=== PATIENT | female | born 1960 | race Caucasian/White ===

== ENCOUNTER → 2016-10-31 | Outpatient (CLI) | payer MEDICAID ==
--- NOTE | 2016-11-05 08:57 | DEXA ---
AP SPINE L1 - L4 0.902 -2.4 -0.7 LT FEMUR TOTAL 0.685 -2.6 -1.3 RT FEMUR TOTAL 0.718 -2.3 -1.0 TOTAL BODY TOTAL OTHER DUAL FEMUR FRAX* ASSESSMENT Risk factors: Tobacco user (current smoker). 10 year probability of fracture Major osteoporotic fracture 12.9 % Hip fracture 5.3 % COMMENTS: There is low bone density of the spine. There is low bone density of the right hip. There is osteoporosis of the left hip. The decreased density of the spine does represent a significant change. The decreased density of the left hip does represent a significant change. The decreased density of the right hip does represent a significant change. The density of the spine has decreased 0.4% since the initial exam on 2009. The spine density has decreased 5.3% since the most recent exam on 05/11/2014. The density of the left hip has decreased 4.2% since the most recent exam on . The density of the right hip has decreased 4.0% since the most recent exam on . Total mean dual femur has decreased 5.1% since the initial exam on 02/08/2010. Total mean has decreased 4.0% since the previous exam on 05/11/2014. FOLLOW-UP: Recommendation for the next bone density exam: 2 years. SANDIPD
== END ==
LOC: M WHC 12:52
PROVIDERS: ATTEND Physician Assistant Medical
DX: Z13.820 Encounter for screening for osteoporosis (principal); M85.9 Disorder of bone density and structure, unspecified; M81.0 Age-related osteoporosis without current pathological fracture; F17.200 Nicotine dependence, unspecified, uncomplicated

== ENCOUNTER → 2017-06-17 | Outpatient (CLI) | payer OTHER ==
--- NOTE | 2017-06-18 09:26 | REP ---
LOW LUNG DOSE SCREENING CT: CLINICAL: Lung screening, history of tobacco use. COMPARISON: None. TECHNIQUE: Axial low dose noncontrast images from the thoracic inlet to the upper abdomen using lung screening technique. FINDINGS: The lung castillo are relatively well aerated and minimal age related chronic appearing changes are suggested. There is a small, 4 mm noncalcified opacity in the periphery of the right upper lobe (images 18-19). Minimal lingular and basilar scarring is appreciated. No further consolidation, nodule or mass lesion. No pleural effusion. No pneumothorax. No obvious adenopathy. Thoracic aorta and coronary arteries demonstrate mild atherosclerotic changes without aortic aneurysm or cardiomegaly. Surrounding musculoskeletal structures are intact. IMPRESSION: 4 mm nodular density in the right upper lobe. Lung-RADS category 2 lesion with management recommendation of 12 month followup examination. Signed by Sandeep Newman MD 06/20/2017 08:47 A
== END ==
LOC: M RAD 10:31
PROVIDERS: ATTEND Physician Assistant Medical
DX: Z72.0 Tobacco use (principal)

== ENCOUNTER → 2018-01-06 | Outpatient (REF) | payer OTHER ==
[2018-01-06 16:16] LABS: BASO # 0.2 10^3/uL (0.0-0.2); BASO % 0.6 % (0.0-1.0); EOS # 2.7 10^3/uL (0.0-0.50); EOS % 10.7 % (0.0-3.0); HEMATOCRIT 43.2 % (36.0-47.0); HEMOGLOBIN 14.3 g/dl (12.0-15.5); IMMATURE GRANULOCYTE % 0.6 % (0-3.0); LYMPH # 3.2 10^3/uL (1.5-4.5); LYMPH % 12.7 % (24.0-44.0); MEAN CORPUSCULAR HEMOGLOBIN 29.1 pg (27.0-33.0); MEAN CORPUSCULAR HGB CONC 33.1 g/dl (32.0-36.5); MEAN CORPUSCULAR VOLUME 87.8 fl (80.0-96.0); MONO # 1.1 10^3/uL (0.0-0.8); MONO % 4.3 % (0.0-5.0); NEUTROPHILS # 17.7 10^3/uL (1.8-7.7); NEUTROPHILS % 71.1 % (36.0-66.0); PLATELET COUNT, AUTOMATED 406 10^3/uL (150-450); RED BLOOD COUNT 4.92 10^6/uL (4.00-5.40); RED CELL DISTRIBUTION WIDTH 14.5 % (11.5-14.5); WHITE BLOOD COUNT 24.9 10^3/uL (4.0-10.0)
[2018-01-06 16:22] LABS: APPEARANCE, URINE HAZY (CLEAR); BACTERIA, URINE AUTO 1+ (NEGATIVE); BILIRUBIN, URINE AUTO NEGATIVE (NEGATIVE); BLOOD, URINE BLOOD NEGATIVE (NEGATIVE); COLOR, URINE YELLOW (YELLOW); GLUCOSE, URINE (UA) AUTO NEGATIVE (NEGATIVE); KETONE, URINE AUTO TRACE mg/dL (NEGATIVE); LEUKOCYTE ESTERASE, URINE AUTO 3+ (NEGATIVE); MUCUS, URINE SMALL (NEGATIVE); NITRITE, URINE AUTO NEGATIVE (NEGATIVE); PROTEIN, URINE AUTO 1+ mg/dL (NEGATIVE); RBC, URINE AUTO 5 /HPF (0-3); SPECIFIC GRAVITY URINE AUTO 1.014 (1.002-1.035); SQUAMOUS EPITHELIAL CELL UR AU 1 /HPF (0-6); UROBILINOGEN, URINE AUTO 0.2 mg/dL (0.0-2.0); WBC, URINE AUTO 111 /HPF (0-3)
[2018-01-06 16:22] LABS: LACTIC ACID SEPSIS PROTOCOL 1.4 MMOL/L (0.4-2.0)
[2018-01-06 16:38] LABS: ALBUMIN 3.8 GM/DL (3.2-5.2); ALBUMIN/GLOBULIN RATIO 0.95 (1.00-1.93); ALKALINE PHOSPHATASE 114 U/L (45-117); ALT/SGPT 23 U/L (12-78); ANION GAP 11 MEQ/L (8-16); AST/SGOT 15 U/L (7-37); BILIRUBIN,TOTAL 0.4 MG/DL (0.2-1.0); BLOOD UREA NITROGEN 10 MG/DL (7-18); C REACTIVE PROTEIN QUANTITATIV 8.58 MG/DL (0.00-0.30); CALCIUM LEVEL 9.3 MG/DL (8.5-10.1); CARBON DIOXIDE LEVEL 24 MEQ/L (21-32); CHLORIDE LEVEL 101 MEQ/L (98-107); CREATININE FOR GFR 0.66 MG/DL (0.55-1.30); GLOMERULAR FILTRATION RATE > 60.0 (>51); GLUCOSE, FASTING 102 MG/DL (70-100); POTASSIUM SERUM 4.4 MEQ/L (3.5-5.1); SODIUM LEVEL 136 MEQ/L (136-145); TOTAL PROTEIN 7.8 GM/DL (6.4-8.2)
[2018-01-06 16:45] LABS: ERYTHROCYTE SEDIMENTATION RATE 21 mm/hr (0-30)
== END ==
LOC: M SFHCPLAZ 15:33
DX: N39.0 Urinary tract infection, site not specified (principal); N18.3 Chronic kidney disease, stage 3 (moderate)

== ENCOUNTER → 2018-01-13 | Outpatient (REF) | payer OTHER ==
[2018-01-13 13:29] LABS: ALBUMIN 3.3 GM/DL (3.2-5.2); ALKALINE PHOSPHATASE 70 U/L (45-117); ALT/SGPT 33 U/L (12-78); ANION GAP 7 MEQ/L (8-16); AST/SGOT 14 U/L (7-37); BILIRUBIN,TOTAL 0.3 MG/DL (0.2-1.0); BLOOD UREA NITROGEN 12 MG/DL (7-18); CARBON DIOXIDE LEVEL 33 MEQ/L (21-32); CHLORIDE LEVEL 102 MEQ/L (98-107); CREATININE FOR GFR 0.64 MG/DL (0.55-1.30); GLOMERULAR FILTRATION RATE > 60.0 (>51); GLUCOSE, FASTING 71 MG/DL (70-100); SODIUM LEVEL 142 MEQ/L (136-145); TOTAL PROTEIN 6.6 GM/DL (6.4-8.2)
[2018-01-13 13:32] LABS: BASO # 0.1 10^3/uL (0.0-0.2); BASO % 0.2 % (0.0-1.0); EOS # 0.4 10^3/uL (0.0-0.50); EOS % 1.7 % (0.0-3.0); HEMATOCRIT 41.4 % (36.0-47.0); HEMOGLOBIN 13.4 g/dl (12.0-15.5); IMMATURE GRANULOCYTE % 2.3 % (0-3.0); LYMPH # 2.7 10^3/uL (1.5-4.5); MEAN CORPUSCULAR HEMOGLOBIN 29.7 pg (27.0-33.0); MEAN CORPUSCULAR HGB CONC 32.4 g/dl (32.0-36.5); MEAN CORPUSCULAR VOLUME 91.8 fl (80.0-96.0); MONO # 1.1 10^3/uL (0.0-0.8); MONO % 4.2 % (0.0-5.0); NEUTROPHILS % 80.6 % (36.0-66.0); PLATELET COUNT, AUTOMATED 358 10^3/uL (150-450); PTH INTACT 85.5 PG/ML (18.5-88.0); RED BLOOD COUNT 4.51 10^6/uL (4.00-5.40); RED CELL DISTRIBUTION WIDTH 15.9 % (11.5-14.5); TOTAL 25(OH) VITAMIN D 60.6 NG/ML (30.0-100.0); WHITE BLOOD COUNT 24.8 10^3/uL (4.0-10.0)
== END ==
LOC: M SFHCPLAZ 11:08
DX: A41.9 Sepsis, unspecified organism (principal); M89.9 Disorder of bone, unspecified
CPT/HCPCS: 80053

== ENCOUNTER → 2018-01-20 | Outpatient (REF) | payer OTHER ==
[2018-01-20 17:54] LABS: APPEARANCE, URINE CLOUDY (CLEAR); BACTERIA, URINE AUTO 2+ (NEGATIVE); BILIRUBIN, URINE AUTO NEGATIVE (NEGATIVE); BLOOD, URINE BLOOD 1+ (NEGATIVE); COLOR, URINE YELLOW (YELLOW); GLUCOSE, URINE (UA) AUTO NEGATIVE (NEGATIVE); KETONE, URINE AUTO NEGATIVE (NEGATIVE); LEUKOCYTE ESTERASE, URINE AUTO 3+ (NEGATIVE); MUCUS, URINE SMALL (NEGATIVE); NITRITE, URINE AUTO NEGATIVE (NEGATIVE); PROTEIN, URINE AUTO NEGATIVE (NEGATIVE); RBC, URINE AUTO 6 /HPF (0-3); SPECIFIC GRAVITY URINE AUTO 1.012 (1.002-1.035); SQUAMOUS EPITHELIAL CELL UR AU 5 /HPF (0-6); WBC, URINE AUTO 18 /HPF (0-3)
== END ==
LOC: M SFHCPLAZ 15:58
DX: R30.0 Dysuria (principal); R33.9 Retention of urine, unspecified
CPT/HCPCS: 81001

== ENCOUNTER → 2018-01-22 | Outpatient (CLI) | payer OTHER | LOC: M CARPUL 07:33 | DX: R50.9 Fever, unspecified (principal) | CPT/HCPCS: 93306 ==

== ENCOUNTER → 2018-02-19 | Outpatient (CLI) | payer OTHER | LOC: M ONCR 14:03 | DX: C52 Malignant neoplasm of vagina (principal) | CPT/HCPCS: 99201 ==

== ENCOUNTER → 2018-02-24 | Outpatient (CLI) | payer OTHER | LOC: M PLARAD 11:18 | DX: C52 Malignant neoplasm of vagina (principal); Z93.6 Other artificial openings of urinary tract status | CPT/HCPCS: 78815 ==

== ENCOUNTER 2018-02-25 10:32 | Outpatient (RCR) | payer OTHER | END 2018-03-13 | LOC: M ONCR 10:32 | DX: C52 Malignant neoplasm of vagina (principal) | CPT/HCPCS: 77300 ==

== ENCOUNTER → 2018-02-26 | Outpatient (REF) | payer OTHER ==
[2018-02-26 19:21] LABS: APPEARANCE, URINE CLEAR (CLEAR); BACTERIA, URINE AUTO 1+ (NEGATIVE); BILIRUBIN, URINE AUTO NEGATIVE (NEGATIVE); BLOOD, URINE BLOOD NEGATIVE (NEGATIVE); CALCIUM OXALATE CRYSTALS SMALL; COLOR, URINE YELLOW (YELLOW); GLUCOSE, URINE (UA) AUTO NEGATIVE (NEGATIVE); KETONE, URINE AUTO NEGATIVE (NEGATIVE); LEUKOCYTE ESTERASE, URINE AUTO 2+ (NEGATIVE); MUCUS, URINE SMALL (NEGATIVE); NITRITE, URINE AUTO NEGATIVE (NEGATIVE); PROTEIN, URINE AUTO 1+ mg/dL (NEGATIVE); RBC, URINE AUTO 3 /HPF (0-3); SPECIFIC GRAVITY URINE AUTO 1.017 (1.002-1.035); SQUAMOUS EPITHELIAL CELL UR AU 2 /HPF (0-6); WBC, URINE AUTO 6 /HPF (0-3)
== END ==
LOC: M SMT 17:15
DX: R31.9 Hematuria, unspecified (principal)
CPT/HCPCS: 81001

== ENCOUNTER → 2018-03-02 | Outpatient (CLI) | payer OTHER ==
[~2018-03-02] MED LIST: BACTRIM 160MG/800MG DS TAB As Ordered; ISOVUE-300 61% 50ML VIAL (Q9967) As Ordered; LIDOCAINE 1% MDV 20ML VIAL As Ordered
== END ==
LOC: M RADPRO 11:47
DX: N13.30 Unspecified hydronephrosis (principal); C52 Malignant neoplasm of vagina; Z79.899 Other long term (current) drug therapy
CPT/HCPCS: 50435

== ENCOUNTER 2018-03-03 13:18 | Outpatient (CLI) | payer OTHER ==
[2018-03-03] MEDS ORDERED: LIDOCAINE 2% MDV 20 ML VIAL As Ordered (13:43)
[2018-03-03] MEDS ORDERED: ISOVUE-300 61% 50ML VIAL (Q9967) As Ordered (13:43)
[2018-03-03] MEDS ORDERED: cefTRIAXone SOD 1 GM VIAL (J0696) As Ordered (14:17)
[2018-03-03] MEDS ORDERED: ONDANSETRON 4MG/2ML VIAL (J2405) IV (15:45)
[2018-03-03] MEDS ORDERED: LR 1,000 ML IV (15:45)
[2018-03-03] MEDS ORDERED: fentaNYL 100 MCG/2 ML INJECTION (J3010) IV (15:45)
[2018-03-03] MEDS ORDERED: oxyCODONE 5MG TAB As Ordered (15:47)
[2018-03-03] MEDS: oxyCODONE 5MG TAB PO (15:50)
== END 2018-03-03 16:21 | disposition home or self-care (01) ==
LOC: M RADPRO 13:18
DX: N13.5 Crossing vessel and stricture of ureter without hydronephrosis (principal); C52 Malignant neoplasm of vagina; D64.9 Anemia, unspecified; M19.90 Unspecified osteoarthritis, unspecified site; M54.89 Other dorsalgia; N18.3 Chronic kidney disease, stage 3 (moderate)
CPT/HCPCS: 50435

== ENCOUNTER 2018-03-04 12:44 | Inpatient (IN) | payer OTHER ==
[2018-03-04] MEDS: NS 500 ML IV (13:41)
[2018-03-04 14:00] LABS: ALBUMIN 2.7 GM/DL (3.2-5.2); ALKALINE PHOSPHATASE 170 U/L (45-117); ALT/SGPT 31 U/L (12-78); ANION GAP 11 MEQ/L (8-16); AST/SGOT 21 U/L (7-37); BILIRUBIN,DIRECT 0.2 MG/DL (0.0-0.2); BILIRUBIN,TOTAL 0.3 MG/DL (0.2-1.0); BLOOD UREA NITROGEN 10 MG/DL (7-18); CALCIUM LEVEL 14.2 MG/DL (8.5-10.1); CARBON DIOXIDE LEVEL 28 MEQ/L (21-32); CHLORIDE LEVEL 98 MEQ/L (98-107); CPK CREATINE PHOSPHOKINASE 58 U/L (26-192); CREATININE FOR GFR 0.67 MG/DL (0.55-1.30); GLOMERULAR FILTRATION RATE > 60.0 (>51); GLUCOSE, FASTING 95 MG/DL (70-100); POTASSIUM SERUM 3.4 MEQ/L (3.5-5.1); SODIUM LEVEL 137 MEQ/L (136-145); TOTAL PROTEIN 7.2 GM/DL (6.4-8.2); TROPONIN I < 0.02 NG/ML (< 0.10)
[2018-03-04 14:05] LABS: CK-MB VALUE MASS 1.9 NG/ML (<3.6); MB/CK RELATIVE INDEX 3.27 (< OR =4); THYROID STIMULATING HORMONE 0.772 uIU/ML (0.358-3.740)
[2018-03-04 14:08] LABS: INR 0.97
[2018-03-04 14:10] LABS: LACTIC ACID SEPSIS PROTOCOL 0.9 MMOL/L (0.4-2.0)
[2018-03-04 14:16] LABS: BASO # 0.1 10^3/uL (0.0-0.2); BASO % 0.3 % (0.0-1.0); EOS # 0.7 10^3/uL (0.0-0.50); EOS % 2.2 % (0.0-3.0); HEMOGLOBIN 10.8 g/dl (12.0-15.5); IMMATURE GRANULOCYTE % 1.2 % (0-3.0); LYMPH # 1.5 10^3/uL (1.5-4.5); LYMPH % 4.5 % (24.0-44.0); MEAN CORPUSCULAR HEMOGLOBIN 28.3 pg (27.0-33.0); MEAN CORPUSCULAR HGB CONC 31.8 g/dl (32.0-36.5); MEAN CORPUSCULAR VOLUME 89.2 fl (80.0-96.0); MONO # 1.2 10^3/uL (0.0-0.8); MONO % 3.7 % (0.0-5.0); NEUTROPHILS % 88.1 % (36.0-66.0); PLATELET COUNT, AUTOMATED 514 10^3/uL (150-450); RED BLOOD COUNT 3.81 10^6/uL (4.00-5.40); RED CELL DISTRIBUTION WIDTH 17.1 % (11.5-14.5)
[2018-03-04 14:37] LABS: NEUTROPHILS # 28.9 10^3/uL (1.8-7.7); POS COUNT POS FLAG; POSITIVE DIFF POS FLAG; WHITE BLOOD COUNT 32.8 10^3/uL (4.0-10.0)
[2018-03-04] MEDS: oxyCODONE 5MG TAB PO (15:07)
[2018-03-04] MEDS: NS 1,000 ML IV (15:17)
[2018-03-04] MEDS ORDERED: ONDANSETRON 4MG/2ML VIAL (J2405) IV (15:30)
[2018-03-04 15:51] LABS: PTH INTACT 9.8 PG/ML (18.5-88.0)
[2018-03-04] MEDS ORDERED: oxyCODONE 5MG TAB PO (17:00)
[2018-03-04] MEDS ORDERED: ACETAMINOPHEN 500 MG TAB PO (17:00)
[2018-03-04] MEDS ORDERED: MORPHINE 4 MG/ML 1ML VIAL/SYRINGE (J2270) IV (17:30)
[2018-03-04] MEDS: POTASSIUM CHLORIDE 10 MEQ SR TABLET PO ×2 (17:51→20:07)
[2018-03-04] MEDS: PIPERACILLIN/TAZOBACTAM SOD 3.375 GM in D5W MINI-BAG PLUS 50 ML IV ×2 (17:51→23:51)
[2018-03-04] MEDS: MORPHINE 4 MG/ML 1ML VIAL/SYRINGE (J2270) IV ×2 (17:52→20:07)
[2018-03-04 18:23] LABS: LACTIC ACID SEPSIS PROTOCOL 0.9 MMOL/L (0.4-2.0)
[2018-03-04 18:24] LABS: ANION GAP 7 MEQ/L (8-16); BLOOD UREA NITROGEN 8 MG/DL (7-18); CALCIUM LEVEL 12.7 MG/DL (8.5-10.1); CARBON DIOXIDE LEVEL 28 MEQ/L (21-32); CHLORIDE LEVEL 102 MEQ/L (98-107); CPK CREATINE PHOSPHOKINASE 49 U/L (26-192); CREATININE FOR GFR 0.58 MG/DL (0.55-1.30); GLOMERULAR FILTRATION RATE > 60.0 (>51); GLUCOSE, FASTING 100 MG/DL (70-100); POTASSIUM SERUM 3.2 MEQ/L (3.5-5.1); SODIUM LEVEL 137 MEQ/L (136-145); TROPONIN I < 0.02 NG/ML (< 0.10)
[2018-03-04 18:25] LABS: CK-MB VALUE MASS 2.2 NG/ML (<3.6); MB/CK RELATIVE INDEX 4.48 (< OR =4)
[2018-03-04] MEDS ORDERED: guaiFENesin DM LIQ 10ML UD PO (19:00)
[2018-03-04] MEDS: DOCUSATE SODIUM 100 MG CAP PO (20:07)
[2018-03-04] MEDS: IPRATROPIUM 0.5MG/ALBUTEROL 2.5MG INH SOL UD 3ML (DUONEB)(J7620) NEB (20:39)
[2018-03-04] MEDS: ADVAIR HFA 230/21MCG INHALER INH (20:39)
[2018-03-04 21:52] LABS: AMORPHOUS SEDIMENT RFX MODERATE (NEGATIVE); KETONE, URINE AUTO RFX NEGATIVE (NEGATIVE); LEUKOCYTE ESTERASE UR AUTO RFX 3+ (NEGATIVE); MUCUS, URINE RFX MODERATE (NEGATIVE); NITRITE, URINE AUTO RFX NEGATIVE (NEGATIVE); RBC, URINE AUTO RFX 53 /HPF (0-3); SPECIFIC GRAVITY UR AUTO RFX 1.008 (1.002-1.035); SQUAM EPITHELIAL CELL UR AURFX 6 /HPF (0-6); WBC, URINE AUTO RFX TNTC /HPF (0-3)
[2018-03-05] MEDS: oxyCODONE 5MG TAB PO ×4 (00:06→23:58)
[2018-03-05] MEDS: IPRATROPIUM 0.5MG/ALBUTEROL 2.5MG INH SOL UD 3ML (DUONEB)(J7620) NEB ×5 (00:32→20:24)
[2018-03-05 00:42] LABS: KETONE, URINE AUTO RFX NEGATIVE (NEGATIVE); MUCUS, URINE RFX SMALL (NEGATIVE); NITRITE, URINE AUTO RFX NEGATIVE (NEGATIVE); RBC, URINE AUTO RFX 61 /HPF (0-3); SPECIFIC GRAVITY UR AUTO RFX 1.008 (1.002-1.035); SQUAM EPITHELIAL CELL UR AURFX 0 /HPF (0-6)
[2018-03-05 00:52] LABS: LEUKOCYTE ESTERASE UR AUTO RFX 3+ (NEGATIVE); WBC, URINE AUTO RFX 37 /HPF (0-3)
[2018-03-05 01:19] LABS: ANION GAP 6 MEQ/L (8-16); BLOOD UREA NITROGEN 7 MG/DL (7-18); CALCIUM LEVEL 12.2 MG/DL (8.5-10.1); CARBON DIOXIDE LEVEL 27 MEQ/L (21-32); CHLORIDE LEVEL 105 MEQ/L (98-107); CK-MB VALUE MASS 2.1 NG/ML (<3.6); CPK CREATINE PHOSPHOKINASE 36 U/L (26-192); CREATININE FOR GFR 0.59 MG/DL (0.55-1.30); GLOMERULAR FILTRATION RATE > 60.0 (>51); GLUCOSE, FASTING 120 MG/DL (70-100); MB/CK RELATIVE INDEX 5.83 (< OR =4); POTASSIUM SERUM 4.4 MEQ/L (3.5-5.1); SODIUM LEVEL 138 MEQ/L (136-145); TROPONIN I < 0.02 NG/ML (< 0.10)
[2018-03-05] MEDS: NS 1,000 ML IV ×3 (02:27→16:58)
[2018-03-05] MEDS: PIPERACILLIN/TAZOBACTAM SOD 3.375 GM in D5W MINI-BAG PLUS 50 ML IV ×4 (05:45→23:58)
[2018-03-05] MEDS: MORPHINE 4 MG/ML 1ML VIAL/SYRINGE (J2270) IV (05:49)
[2018-03-05 05:54] LABS: HEMATOCRIT 29.4 % (36.0-47.0); HEMOGLOBIN 9.2 g/dl (12.0-15.5); MEAN CORPUSCULAR HEMOGLOBIN 28.2 pg (27.0-33.0); MEAN CORPUSCULAR HGB CONC 31.3 g/dl (32.0-36.5); MEAN CORPUSCULAR VOLUME 90.2 fl (80.0-96.0); PLATELET COUNT, AUTOMATED 467 10^3/uL (150-450); RED BLOOD COUNT 3.26 10^6/uL (4.00-5.40); RED CELL DISTRIBUTION WIDTH 17.2 % (11.5-14.5)
[2018-03-05 06:05] LABS: ANION GAP 7 MEQ/L (8-16); BLOOD UREA NITROGEN 7 MG/DL (7-18); CALCIUM LEVEL 12.3 MG/DL (8.5-10.1); CARBON DIOXIDE LEVEL 26 MEQ/L (21-32); CHLORIDE LEVEL 108 MEQ/L (98-107); CREATININE FOR GFR 0.58 MG/DL (0.55-1.30); GLOMERULAR FILTRATION RATE > 60.0 (>51); GLUCOSE, FASTING 76 MG/DL (70-100); MAGNESIUM LEVEL 1.5 MG/DL (1.8-2.4); POTASSIUM SERUM 4.7 MEQ/L (3.5-5.1); SODIUM LEVEL 141 MEQ/L (136-145)
[2018-03-05 06:27] LABS: POS COUNT POS FLAG; POSITIVE DIFF POS FLAG; WHITE BLOOD COUNT 33.8 10^3/uL (4.0-10.0)
[2018-03-05 06:28] LABS: ADD MANUAL DIFFER YES; DIFF SLIDE NUMBER 78
[2018-03-05 06:29] LABS: ANISOCYTOSIS 1+; EOSINOPHILS 5 % (0-5); LYMPHOCYTES 2 % (16-52); MONOCYTES 4 % (0-8); NEUTROPHILS 89 % (35-75); PLATELET ESTIMATE INCREASED (NORMAL)
[2018-03-05] MEDS: ADVAIR HFA 230/21MCG INHALER INH ×2 (07:48→20:25)
[2018-03-05] MEDS: TIOTROPIUM INHALER/CAPSULE (SPIRIVA) INH (07:48)
[2018-03-05] MEDS: DOCUSATE SODIUM 100 MG CAP PO ×2 (08:43→20:18)
[2018-03-05] MEDS: POTASSIUM CHLORIDE 10 MEQ SR TABLET PO (08:44)
[2018-03-05] MEDS: OMEPRAZOLE 20 MG CAP PO (08:58)
[2018-03-05] MEDS ORDERED: CALCIUM/VITAMIN D 500 MG TAB PO (09:00)
[2018-03-05] MEDS ORDERED: methylPREDNISolone INJ 125 MG/2 ML VIAL (J2930) IV (10:15)
[2018-03-05] MEDS: NICOTINE 21MG/24HR 1 EA TRANSDERMAL TD (10:48)
[2018-03-05] MEDS: HYDROCORTISONE 100 MG/2 ML VIAL (J1720) IV ×2 (10:48→23:57)
[2018-03-05] MEDS: MAG SULF 1GM/100ML (MAG RUN) 1 GM in APPROPRIATE DILUENT 1 EA IV (10:51)
[2018-03-05 10:59] LABS: CK-MB VALUE MASS 1.6 NG/ML (<3.6); CPK CREATINE PHOSPHOKINASE 37 U/L (26-192); MB/CK RELATIVE INDEX 4.32 (< OR =4); TROPONIN I < 0.02 NG/ML (< 0.10)
[2018-03-05] MEDS: ENOXAPARIN 30 MG/0.3 ML SYR (J1650) SC (11:53)
[2018-03-05] MEDS: KETOROLAC 60 MG/2 ML VIAL (J1885) IM (11:56)
[2018-03-05 12:09] LABS: ANION GAP 6 MEQ/L (8-16); BLOOD UREA NITROGEN 6 MG/DL (7-18); CALCIUM LEVEL 11.8 MG/DL (8.5-10.1); CARBON DIOXIDE LEVEL 27 MEQ/L (21-32); CHLORIDE LEVEL 107 MEQ/L (98-107); CREATININE FOR GFR 0.55 MG/DL (0.55-1.30); GLOMERULAR FILTRATION RATE > 60.0 (>51); GLUCOSE, FASTING 93 MG/DL (70-100); POTASSIUM SERUM 4.6 MEQ/L (3.5-5.1); SODIUM LEVEL 140 MEQ/L (136-145)
[2018-03-05 12:36] LABS: OSMOLALITY SERUM 280 MOSM/KG (275-295)
[2018-03-05] MEDS: FUROSEMIDE 20 MG/2 ML VIAL (J1940) IV (12:50)
[2018-03-05] MEDS: ZOLEDRONIC ACID 4 MG in D5W 100 ML IV (14:59)
[2018-03-05] MEDS: CALCITONIN SALMON (MIACALCIN) 400INTERNATIONAL UNITS/2ML INJ (J0630) SQ ×2 (14:59→20:18)
[2018-03-05 17:45] LABS: OSMOLALITY URINE 265 MOSM/KG (500-800)
[2018-03-05 17:59] LABS: SODIUM,RANDOM URINE 78 MEQ/L
[2018-03-05 18:22] LABS: ANION GAP 9 MEQ/L (8-16); BLOOD UREA NITROGEN 7 MG/DL (7-18); CALCIUM LEVEL 11.1 MG/DL (8.5-10.1); CARBON DIOXIDE LEVEL 26 MEQ/L (21-32); CHLORIDE LEVEL 104 MEQ/L (98-107); CREATININE FOR GFR 0.65 MG/DL (0.55-1.30); GLOMERULAR FILTRATION RATE > 60.0 (>51); GLUCOSE, FASTING 135 MG/DL (70-100); POTASSIUM SERUM 4.2 MEQ/L (3.5-5.1); SODIUM LEVEL 139 MEQ/L (136-145)
[2018-03-06 00:23] LABS: ANION GAP 6 MEQ/L (8-16); BLOOD UREA NITROGEN 7 MG/DL (7-18); CALCIUM LEVEL 10.5 MG/DL (8.5-10.1); CARBON DIOXIDE LEVEL 28 MEQ/L (21-32); CHLORIDE LEVEL 106 MEQ/L (98-107); GLOMERULAR FILTRATION RATE > 60.0 (>51); GLUCOSE, FASTING 91 MG/DL (70-100); POTASSIUM SERUM 3.6 MEQ/L (3.5-5.1); SODIUM LEVEL 140 MEQ/L (136-145)
[2018-03-06] MEDS: IPRATROPIUM 0.5MG/ALBUTEROL 2.5MG INH SOL UD 3ML (DUONEB)(J7620) NEB ×5 (02:16→20:49)
[2018-03-06] MEDS: oxyCODONE 5MG TAB PO ×4 (03:57→16:49)
[2018-03-06] MEDS: PIPERACILLIN/TAZOBACTAM SOD 3.375 GM in D5W MINI-BAG PLUS 50 ML IV ×3 (05:40→18:07)
[2018-03-06 06:04] LABS: BASO % 0.1 % (0.0-1.0); EOS % 0.1 % (0.0-3.0); HEMOGLOBIN 8.5 g/dl (12.0-15.5); IMMATURE GRANULOCYTE % 1.1 % (0-3.0); LYMPH # 0.9 10^3/uL (1.5-4.5); LYMPH % 3.4 % (24.0-44.0); MEAN CORPUSCULAR HEMOGLOBIN 28.4 pg (27.0-33.0); MEAN CORPUSCULAR HGB CONC 31.5 g/dl (32.0-36.5); MEAN CORPUSCULAR VOLUME 90.3 fl (80.0-96.0); MONO # 0.3 10^3/uL (0.0-0.8); NEUTROPHILS % 94.3 % (36.0-66.0); PLATELET COUNT, AUTOMATED 403 10^3/uL (150-450); RED BLOOD COUNT 2.99 10^6/uL (4.00-5.40); WHITE BLOOD COUNT 27.1 10^3/uL (4.0-10.0)
[2018-03-06 06:29] LABS: ANION GAP 7 MEQ/L (8-16); BLOOD UREA NITROGEN 7 MG/DL (7-18); CARBON DIOXIDE LEVEL 26 MEQ/L (21-32); CHLORIDE LEVEL 107 MEQ/L (98-107); CREATININE FOR GFR 0.45 MG/DL (0.55-1.30); GLOMERULAR FILTRATION RATE > 60.0 (>51); GLUCOSE, FASTING 112 MG/DL (70-100); MAGNESIUM LEVEL 1.5 MG/DL (1.8-2.4); POTASSIUM SERUM 3.7 MEQ/L (3.5-5.1); SODIUM LEVEL 140 MEQ/L (136-145)
[2018-03-06 06:31] LABS: NEUTROPHILS # 25.5 10^3/uL (1.8-7.7); POSITIVE DIFF POS FLAG
[2018-03-06] MEDS: TIOTROPIUM INHALER/CAPSULE (SPIRIVA) INH (07:41)
[2018-03-06] MEDS: ADVAIR HFA 230/21MCG INHALER INH ×2 (07:41→20:49)
[2018-03-06 08:21] LABS: PHOSPHORUS LEVEL 2.5 MG/DL (2.5-4.9)
[2018-03-06] MEDS: MAG SULF 1GM/100ML (MAG RUN) 1 GM in APPROPRIATE DILUENT 1 EA IV (09:54)
[2018-03-06] MEDS: ENOXAPARIN 30 MG/0.3 ML SYR (J1650) SC (09:55)
[2018-03-06] MEDS: OMEPRAZOLE 20 MG CAP PO (09:55)
[2018-03-06] MEDS: DOCUSATE SODIUM 100 MG CAP PO ×2 (09:55→20:41)
[2018-03-06] MEDS: NICOTINE 21MG/24HR 1 EA TRANSDERMAL TD (09:55)
[2018-03-06] MEDS: HYDROCORTISONE 100 MG/2 ML VIAL (J1720) IV (11:37)
[2018-03-06 14:57] LABS: VITAMIN D 1,25 DIHYDROXY 58.2 pg/mL (19.9-79.3)
[2018-03-06] MEDS: MORPHINE 4 MG/ML 1ML VIAL/SYRINGE (J2270) IV (20:47)
[2018-03-07] MEDS: HYDROCORTISONE 100 MG/2 ML VIAL (J1720) IV ×2 (00:05→10:52)
[2018-03-07] MEDS: PIPERACILLIN/TAZOBACTAM SOD 3.375 GM in D5W MINI-BAG PLUS 50 ML IV ×3 (00:06→13:02)
[2018-03-07] MEDS: oxyCODONE 5MG TAB PO ×3 (00:14→13:09)
[2018-03-07] MEDS: IPRATROPIUM 0.5MG/ALBUTEROL 2.5MG INH SOL UD 3ML (DUONEB)(J7620) NEB ×4 (02:34→12:32)
[2018-03-07 05:35] LABS: BASO % 0.1 % (0.0-1.0); HEMOGLOBIN 8.5 g/dl (12.0-15.5); IMMATURE GRANULOCYTE % 1.4 % (0-3.0); LYMPH # 0.8 10^3/uL (1.5-4.5); MEAN CORPUSCULAR HGB CONC 31.5 g/dl (32.0-36.5); MEAN CORPUSCULAR VOLUME 88.8 fl (80.0-96.0); MONO # 0.2 10^3/uL (0.0-0.8); MONO % 0.9 % (0.0-5.0); NEUTROPHILS % 94.6 % (36.0-66.0); PLATELET COUNT, AUTOMATED 362 10^3/uL (150-450); RED BLOOD COUNT 3.04 10^6/uL (4.00-5.40); RED CELL DISTRIBUTION WIDTH 16.9 % (11.5-14.5); WHITE BLOOD COUNT 27.2 10^3/uL (4.0-10.0)
[2018-03-07 05:38] LABS: NEUTROPHILS # 25.7 10^3/uL (1.8-7.7); POSITIVE DIFF POS FLAG
[2018-03-07 06:01] LABS: ALBUMIN 2.2 GM/DL (3.2-5.2); ANION GAP 7 MEQ/L (8-16); BLOOD UREA NITROGEN 8 MG/DL (7-18); CALCIUM LEVEL 8.7 MG/DL (8.5-10.1); CARBON DIOXIDE LEVEL 27 MEQ/L (21-32); CHLORIDE LEVEL 105 MEQ/L (98-107); CREATININE FOR GFR 0.43 MG/DL (0.55-1.30); GLOMERULAR FILTRATION RATE > 60.0 (>51); GLUCOSE, FASTING 134 MG/DL (70-100); MAGNESIUM LEVEL 1.4 MG/DL (1.8-2.4); PHOSPHORUS LEVEL 2.3 MG/DL (2.5-4.9); SODIUM LEVEL 139 MEQ/L (136-145)
[2018-03-07] MEDS: ADVAIR HFA 230/21MCG INHALER INH (07:34)
[2018-03-07] MEDS: TIOTROPIUM INHALER/CAPSULE (SPIRIVA) INH (07:34)
[2018-03-07] MEDS: MAG SULF 1GM/100ML (MAG RUN) 1 GM in APPROPRIATE DILUENT 1 EA IV ×2 (08:13→14:14)
[2018-03-07] MEDS: DOCUSATE SODIUM 100 MG CAP PO (08:53)
[2018-03-07] MEDS: OMEPRAZOLE 20 MG CAP PO (08:53)
[2018-03-07] MEDS: NICOTINE 21MG/24HR 1 EA TRANSDERMAL TD (08:54)
[2018-03-07] MEDS: MIRALAX *UNIT DOSE* 17GM PACKET PO (08:54)
[2018-03-07] MEDS: ENOXAPARIN 30 MG/0.3 ML SYR (J1650) SC (08:54)
[2018-03-07] MEDS: POTASSIUM CHLORIDE 10 MEQ SR TABLET PO ×2 (10:53→14:13)
[2018-03-07] MEDS ORDERED: PENICILLIN POTASSIUM MU IV (13:15)
[2018-03-07] MEDS ORDERED: DILUENT IV (13:15)
[2018-03-07] MEDS: PREVNAR 13 VACCINE SYRINGE (CPT CODE:90670) IM (16:14)
[2018-03-07] MEDS ORDERED: AMPICILLIN SOD 500 MG in D5W 50 ML IV (18:00)
== END 2018-03-07 17:20 | disposition home or self-care (01) | DRG 425 ==
LOC: M ED 12:44 → M ED INP 15:26 → M PCU 17:01
DX: E83.52 Hypercalcemia (principal); A41.9 Sepsis, unspecified organism; N39.0 Urinary tract infection, site not specified; N18.3 Chronic kidney disease, stage 3 (moderate); C52 Malignant neoplasm of vagina; E87.1 Hypo-osmolality and hyponatremia; K21.9 Gastro-esophageal reflux disease without esophagitis; M54.2 Cervicalgia; M54.5 Low back pain; G43.909 Migraine, unspecified, not intractable, without status migrainosus; F41.9 Anxiety disorder, unspecified; M81.0 Age-related osteoporosis without current pathological fracture; Z86.718 Personal history of other venous thrombosis and embolism; F17.210 Nicotine dependence, cigarettes, uncomplicated; J44.9 Chronic obstructive pulmonary disease, unspecified; Z79.899 Other long term (current) drug therapy; K59.00 Constipation, unspecified; E83.42 Hypomagnesemia; E83.39 Other disorders of phosphorus metabolism

== ENCOUNTER 2018-03-13 03:15 | Inpatient (IN) | payer OTHER ==
[2018-03-13] MEDS: NS 1,000 ML IV ×2 (04:15→23:57)
[2018-03-13] MEDS ORDERED: ONDANSETRON 4 MG TAB (S0181) PO (04:15)
[2018-03-13 04:47] LABS: BASO # 0.2 10^3/uL (0.0-0.2); BASO % 0.4 % (0.0-1.0); EOS # 1.7 10^3/uL (0.0-0.50); EOS % 3.9 % (0.0-3.0); HEMATOCRIT 28.6 % (36.0-47.0); IMMATURE GRANULOCYTE % 2.1 % (0-3.0); LYMPH # 1.7 10^3/uL (1.5-4.5); LYMPH % 4.1 % (24.0-44.0); MEAN CORPUSCULAR HEMOGLOBIN 28.5 pg (27.0-33.0); MEAN CORPUSCULAR HGB CONC 31.5 g/dl (32.0-36.5); MEAN CORPUSCULAR VOLUME 90.5 fl (80.0-96.0); MONO # 1.1 10^3/uL (0.0-0.8); MONO % 2.6 % (0.0-5.0); NEUTROPHILS % 86.9 % (36.0-66.0); RED BLOOD COUNT 3.16 10^6/uL (4.00-5.40); RED CELL DISTRIBUTION WIDTH 17.9 % (11.5-14.5)
[2018-03-13 05:15] LABS: ALBUMIN 2.2 GM/DL (3.2-5.2); ALBUMIN/GLOBULIN RATIO 0.54 (1.00-1.93); ALKALINE PHOSPHATASE 129 U/L (45-117); ALT/SGPT 19 U/L (12-78); ANION GAP 9 MEQ/L (8-16); AST/SGOT 14 U/L (7-37); BILIRUBIN,TOTAL 0.3 MG/DL (0.2-1.0); BLOOD UREA NITROGEN 12 MG/DL (7-18); CARBON DIOXIDE LEVEL 26 MEQ/L (21-32); CHLORIDE LEVEL 104 MEQ/L (98-107); CREATININE FOR GFR 0.43 MG/DL (0.55-1.30); GLOMERULAR FILTRATION RATE > 60.0 (>51); GLUCOSE, FASTING 102 MG/DL (70-100); MAGNESIUM LEVEL 1.5 MG/DL (1.8-2.4); SODIUM LEVEL 139 MEQ/L (136-145); TOTAL PROTEIN 6.3 GM/DL (6.4-8.2)
[2018-03-13 05:19] LABS: NEUTROPHILS # 37.1 10^3/uL (1.8-7.7); POS COUNT POS FLAG; POSITIVE DIFF POS FLAG
[2018-03-13 05:20] LABS: PLATELET COUNT, AUTOMATED 315 10^3/uL (150-450); WHITE BLOOD COUNT 42.7 10^3/uL (4.0-10.0)
[2018-03-13] MEDS ORDERED: MORPHINE 10MG/0.5ML ORAL CONCENTRATE SOLUTION U/D PO (05:45)
[2018-03-13] MEDS ORDERED: ONDANSETRON 4MG/2ML VIAL (J2405) IV (05:45)
[2018-03-13] MEDS: methylPREDNISolone INJ 40 MG/1 ML VIAL (J2920) IV (06:00)
[2018-03-13] MEDS: PIPERACILLIN/TAZOBACTAM SOD 2.25 GM in D5W MINI-BAG PLUS 50 ML IV ×4 (06:00→23:57)
[2018-03-13] MEDS: MAG SULF 1GM/100ML (MAG RUN) 1 GM in APPROPRIATE DILUENT 1 EA IV (06:00)
[2018-03-13] MEDS: POTASSIUM CHLORIDE 10 MEQ SR TABLET PO (06:00)
[2018-03-13] MEDS: IPRATROPIUM 0.5MG/ALBUTEROL 2.5MG INH SOL UD 3ML (DUONEB)(J7620) NEB ×4 (08:22→20:56)
[2018-03-13] MEDS: ADVAIR HFA 230/21MCG INHALER INH ×2 (08:22→20:56)
[2018-03-13] MEDS: TIOTROPIUM INHALER/CAPSULE (SPIRIVA) INH (08:22)
[2018-03-13] MEDS: SENOKOT S TAB PO ×2 (09:57→20:48)
[2018-03-13] MEDS: predniSONE 20 MG TAB PO (09:58)
[2018-03-13] MEDS: OMEPRAZOLE 20 MG CAP PO (09:58)
[2018-03-13] MEDS: ENOXAPARIN 30 MG/0.3 ML SYR (J1650) SC (09:58)
[2018-03-13] MEDS: oxyCODONE 5MG TAB PO ×2 (10:05→20:49)
[2018-03-13] MEDS ORDERED: MORPHINE 4 MG/ML 1ML VIAL/SYRINGE (J2270) IV (15:30)
[2018-03-13] MEDS: MORPHINE 4 MG/ML 1ML VIAL/SYRINGE (J2270) IV ×2 (16:01→19:28)
[2018-03-13] MEDS ORDERED: MORPHINE SULFATE ORAL SOLN 10 MG/5 ML UD PO (17:10)
[2018-03-14] MEDS: oxyCODONE 5MG TAB PO ×4 (02:20→17:59)
[2018-03-14 05:27] LABS: HEMOGLOBIN 8.5 g/dl (12.0-15.5); MEAN CORPUSCULAR HEMOGLOBIN 28.4 pg (27.0-33.0); MEAN CORPUSCULAR HGB CONC 31.5 g/dl (32.0-36.5); MEAN CORPUSCULAR VOLUME 90.3 fl (80.0-96.0); PLATELET COUNT, AUTOMATED 296 10^3/uL (150-450); RED BLOOD COUNT 2.99 10^6/uL (4.00-5.40); RED CELL DISTRIBUTION WIDTH 17.5 % (11.5-14.5)
[2018-03-14 05:43] LABS: ALBUMIN 2.2 GM/DL (3.2-5.2); ALBUMIN/GLOBULIN RATIO 0.54 (1.00-1.93); ALKALINE PHOSPHATASE 123 U/L (45-117); ALT/SGPT 23 U/L (12-78); ANION GAP 7 MEQ/L (8-16); AST/SGOT 12 U/L (7-37); BILIRUBIN,TOTAL 0.2 MG/DL (0.2-1.0); BLOOD UREA NITROGEN 12 MG/DL (7-18); CALCIUM LEVEL 8.5 MG/DL (8.5-10.1); CARBON DIOXIDE LEVEL 26 MEQ/L (21-32); CHLORIDE LEVEL 107 MEQ/L (98-107); CREATININE FOR GFR 0.38 MG/DL (0.55-1.30); GLOMERULAR FILTRATION RATE > 60.0 (>51); GLUCOSE, FASTING 115 MG/DL (70-100); MAGNESIUM LEVEL 1.5 MG/DL (1.8-2.4); POTASSIUM SERUM 3.7 MEQ/L (3.5-5.1); SODIUM LEVEL 140 MEQ/L (136-145); TOTAL PROTEIN 6.3 GM/DL (6.4-8.2)
[2018-03-14 06:02] LABS: POS COUNT POS FLAG; POSITIVE DIFF POS FLAG; POSITIVE MORPH POS FLAG
[2018-03-14 06:03] LABS: ADD MANUAL DIFFER YES; DIFF SLIDE NUMBER 45; WHITE BLOOD COUNT 37.4 10^3/uL (4.0-10.0)
[2018-03-14 06:09] LABS: ANISOCYTOSIS 1+; EOSINOPHILS 1 % (0-5); LYMPHOCYTES 4 % (16-52); MONOCYTES 1 % (0-8); NEUTROPHILS 94 % (35-75); OVALOCYTES 1+; PLATELET ESTIMATE NORMAL (NORMAL)
[2018-03-14] MEDS: PIPERACILLIN/TAZOBACTAM SOD 2.25 GM in D5W MINI-BAG PLUS 50 ML IV ×3 (06:42→17:59)
[2018-03-14] MEDS: predniSONE 20 MG TAB PO (08:00)
[2018-03-14] MEDS: SENOKOT S TAB PO ×2 (08:00→20:05)
[2018-03-14] MEDS: ENOXAPARIN 30 MG/0.3 ML SYR (J1650) SC (08:00)
[2018-03-14] MEDS: OMEPRAZOLE 20 MG CAP PO (08:00)
[2018-03-14] MEDS: TIOTROPIUM INHALER/CAPSULE (SPIRIVA) INH (08:17)
[2018-03-14] MEDS: IPRATROPIUM 0.5MG/ALBUTEROL 2.5MG INH SOL UD 3ML (DUONEB)(J7620) NEB ×4 (08:18→20:31)
[2018-03-14] MEDS: ADVAIR HFA 230/21MCG INHALER INH ×2 (08:18→20:31)
[2018-03-14] MEDS: MORPHINE 4 MG/ML 1ML VIAL/SYRINGE (J2270) IV ×3 (08:48→23:01)
[2018-03-14] MEDS: NS 1,000 ML IV (22:04)
[2018-03-15] MEDS: PIPERACILLIN/TAZOBACTAM SOD 2.25 GM in D5W MINI-BAG PLUS 50 ML IV ×4 (00:14→16:32)
[2018-03-15] MEDS: oxyCODONE 5MG TAB PO ×4 (00:15→21:03)
[2018-03-15] MEDS: MORPHINE 4 MG/ML 1ML VIAL/SYRINGE (J2270) IV ×4 (04:18→19:54)
[2018-03-15] MEDS: ALBUTEROL 90 MCG/ACT 8GM HFA INHALER INH (05:11)
[2018-03-15 05:49] LABS: HEMATOCRIT 28.3 % (36.0-47.0); HEMOGLOBIN 8.7 g/dl (12.0-15.5); MEAN CORPUSCULAR HEMOGLOBIN 28.2 pg (27.0-33.0); MEAN CORPUSCULAR HGB CONC 30.7 g/dl (32.0-36.5); MEAN CORPUSCULAR VOLUME 91.9 fl (80.0-96.0); PLATELET COUNT, AUTOMATED 289 10^3/uL (150-450); RED BLOOD COUNT 3.08 10^6/uL (4.00-5.40); RED CELL DISTRIBUTION WIDTH 17.7 % (11.5-14.5)
[2018-03-15 05:51] LABS: ADD MANUAL DIFFER YES; DIFF SLIDE NUMBER 31; POS COUNT POS FLAG; POSITIVE DIFF POS FLAG; POSITIVE MORPH POS FLAG; WHITE BLOOD COUNT 38.3 10^3/uL (4.0-10.0)
[2018-03-15 06:02] LABS: ALBUMIN 2.3 GM/DL (3.2-5.2); ALBUMIN/GLOBULIN RATIO 0.53 (1.00-1.93); ALKALINE PHOSPHATASE 139 U/L (45-117); ALT/SGPT 23 U/L (12-78); ANION GAP 9 MEQ/L (8-16); AST/SGOT 16 U/L (7-37); BILIRUBIN,TOTAL 0.2 MG/DL (0.2-1.0); BLOOD UREA NITROGEN 9 MG/DL (7-18); CALCIUM LEVEL 8.2 MG/DL (8.5-10.1); CARBON DIOXIDE LEVEL 23 MEQ/L (21-32); CHLORIDE LEVEL 108 MEQ/L (98-107); GLOMERULAR FILTRATION RATE > 60.0 (>51); GLUCOSE, FASTING 92 MG/DL (70-100); MAGNESIUM LEVEL 1.5 MG/DL (1.8-2.4); POTASSIUM SERUM 3.5 MEQ/L (3.5-5.1); SODIUM LEVEL 140 MEQ/L (136-145); TOTAL PROTEIN 6.6 GM/DL (6.4-8.2)
[2018-03-15 06:12] LABS: ANISOCYTOSIS 1+; EOSINOPHILS 1 % (0-5); HYPOCHROMASIA 1+; LYMPHOCYTES 6 % (16-52); MONOCYTES 3 % (0-8); NEUTROPHILS 90 % (35-75); PLATELET ESTIMATE NORMAL (NORMAL)
[2018-03-15 06:14] LABS: TOXIC GRANULATION 1+
[2018-03-15] MEDS: ADVAIR HFA 230/21MCG INHALER INH ×2 (07:26→20:30)
[2018-03-15] MEDS: TIOTROPIUM INHALER/CAPSULE (SPIRIVA) INH (07:26)
[2018-03-15] MEDS: IPRATROPIUM 0.5MG/ALBUTEROL 2.5MG INH SOL UD 3ML (DUONEB)(J7620) NEB ×4 (07:28→20:32)
[2018-03-15] MEDS: ENOXAPARIN 30 MG/0.3 ML SYR (J1650) SC (09:01)
[2018-03-15] MEDS: SENOKOT S TAB PO ×2 (09:01→20:59)
[2018-03-15] MEDS: OMEPRAZOLE 20 MG CAP PO (09:01)
[2018-03-15] MEDS: predniSONE 10 MG TAB PO (09:01)
[2018-03-15] MEDS: MAGNESIUM CHLORIDE 64 MG TABCR (SLO MAG) PO (12:39)
[2018-03-15] MEDS: NS 1,000 ML IV (16:15)
[2018-03-15] MEDS: GASTROGRAFIN SOLUTION 30ML PO ×2 (16:31→17:00)
[2018-03-15] MEDS ORDERED: ISOVUE-370 76% 100ML VIAL (Q9967) As Ordered (17:59)
[2018-03-15] MEDS: clonazePAM 0.5 MG TAB PO (21:03)
[2018-03-16] MEDS: PIPERACILLIN/TAZOBACTAM SOD 2.25 GM in D5W MINI-BAG PLUS 50 ML IV ×4 (00:24→18:08)
[2018-03-16] MEDS: oxyCODONE 5MG TAB PO ×5 (03:39→22:15)
[2018-03-16] MEDS ORDERED: IPRATROPIUM 0.5MG/ALBUTEROL 2.5MG INH SOL UD 3ML (DUONEB)(J7620) NEB (04:00)
[2018-03-16 06:33] LABS: HEMATOCRIT 26.6 % (36.0-47.0); HEMOGLOBIN 8.2 g/dl (12.0-15.5); MEAN CORPUSCULAR HEMOGLOBIN 27.9 pg (27.0-33.0); MEAN CORPUSCULAR HGB CONC 30.8 g/dl (32.0-36.5); MEAN CORPUSCULAR VOLUME 90.5 fl (80.0-96.0); PLATELET COUNT, AUTOMATED 251 10^3/uL (150-450); RED BLOOD COUNT 2.94 10^6/uL (4.00-5.40)
[2018-03-16 07:07] LABS: ALBUMIN/GLOBULIN RATIO 0.48 (1.00-1.93); ALKALINE PHOSPHATASE 129 U/L (45-117); ALT/SGPT 23 U/L (12-78); ANION GAP 6 MEQ/L (8-16); AST/SGOT 10 U/L (7-37); BILIRUBIN,TOTAL 0.3 MG/DL (0.2-1.0); BLOOD UREA NITROGEN 11 MG/DL (7-18); CARBON DIOXIDE LEVEL 27 MEQ/L (21-32); CHLORIDE LEVEL 107 MEQ/L (98-107); CREATININE FOR GFR 0.36 MG/DL (0.55-1.30); GLOMERULAR FILTRATION RATE > 60.0 (>51); GLUCOSE, FASTING 71 MG/DL (70-100); MAGNESIUM LEVEL 1.6 MG/DL (1.8-2.4); POTASSIUM SERUM 3.4 MEQ/L (3.5-5.1); SODIUM LEVEL 140 MEQ/L (136-145); TOTAL PROTEIN 6.2 GM/DL (6.4-8.2)
[2018-03-16 07:39] LABS: ADD MANUAL DIFFER YES; DIFF SLIDE NUMBER 22; POS COUNT POS FLAG; POSITIVE DIFF POS FLAG; POSITIVE MORPH POS FLAG
[2018-03-16 07:42] LABS: BANDS 3 % (< 11); EOSINOPHILS 1 % (0-5); LYMPHOCYTES 4 % (16-52); MONOCYTES 5 % (0-8); NEUTROPHILS 87 % (35-75); PLATELET ESTIMATE NORMAL (NORMAL)
[2018-03-16 07:43] LABS: ANISOCYTOSIS 1+; MICROCYTOSIS 1+
[2018-03-16] MEDS: TIOTROPIUM INHALER/CAPSULE (SPIRIVA) INH (08:22)
[2018-03-16] MEDS: ADVAIR HFA 230/21MCG INHALER INH ×2 (08:23→20:08)
[2018-03-16] MEDS: IPRATROPIUM 0.5MG/ALBUTEROL 2.5MG INH SOL UD 3ML (DUONEB)(J7620) NEB ×4 (08:25→20:09)
[2018-03-16] MEDS: ENOXAPARIN 30 MG/0.3 ML SYR (J1650) SC (09:10)
[2018-03-16] MEDS: MAGNESIUM CHLORIDE 64 MG TABCR (SLO MAG) PO (09:10)
[2018-03-16] MEDS: OMEPRAZOLE 20 MG CAP PO (09:10)
[2018-03-16] MEDS: predniSONE 10 MG TAB PO (09:10)
[2018-03-16] MEDS: SENOKOT S TAB PO ×2 (09:10→20:20)
[2018-03-16] MEDS: NS 1,000 ML IV (11:57)
[2018-03-16] MEDS: MAG SULF 1GM/100ML (MAG RUN) 1 GM in APPROPRIATE DILUENT 1 EA IV (11:57)
[2018-03-16] MEDS ORDERED: NICOTINE POLACRILEX 2 MG GUM PO (12:45)
[2018-03-16] MEDS ORDERED: POLYVINYL ALCOHOL OPHTH SOLN 15 ML(LIQUITEARS) OU (13:00)
[2018-03-16 15:10] LABS: ANION GAP 10 MEQ/L (8-16); BLOOD UREA NITROGEN 9 MG/DL (7-18); CARBON DIOXIDE LEVEL 25 MEQ/L (21-32); CHLORIDE LEVEL 107 MEQ/L (98-107); CREATININE FOR GFR 0.62 MG/DL (0.55-1.30); GLUCOSE, FASTING 182 MG/DL (70-100); POTASSIUM SERUM 3.9 MEQ/L (3.5-5.1); SODIUM LEVEL 142 MEQ/L (136-145)
[2018-03-16 15:12] LABS: GLOMERULAR FILTRATION RATE > 60.0 (>51)
[2018-03-16] MEDS: MORPHINE 4 MG/ML 1ML VIAL/SYRINGE (J2270) IV (20:20)
[2018-03-17] MEDS: PIPERACILLIN/TAZOBACTAM SOD 2.25 GM in D5W MINI-BAG PLUS 50 ML IV ×5 (00:27→23:42)
[2018-03-17] MEDS: MORPHINE 4 MG/ML 1ML VIAL/SYRINGE (J2270) IV ×3 (00:27→14:03)
[2018-03-17] MEDS: clonazePAM 0.5 MG TAB PO (00:32)
[2018-03-17] MEDS: oxyCODONE 5MG TAB PO ×4 (03:23→20:05)
[2018-03-17 05:41] LABS: BASO # 0.1 10^3/uL (0.0-0.2); BASO % 0.3 % (0.0-1.0); EOS # 0.3 10^3/uL (0.0-0.50); HEMATOCRIT 25.1 % (36.0-47.0); HEMOGLOBIN 7.5 g/dl (12.0-15.5); IMMATURE GRANULOCYTE % 2.7 % (0-3.0); LYMPH # 1.7 10^3/uL (1.5-4.5); LYMPH % 6.3 % (24.0-44.0); MEAN CORPUSCULAR HEMOGLOBIN 27.9 pg (27.0-33.0); MEAN CORPUSCULAR HGB CONC 29.9 g/dl (32.0-36.5); MEAN CORPUSCULAR VOLUME 93.3 fl (80.0-96.0); MONO # 0.8 10^3/uL (0.0-0.8); MONO % 3.2 % (0.0-5.0); NEUTROPHILS # 22.8 10^3/uL (1.8-7.7); NEUTROPHILS % 86.5 % (36.0-66.0); PLATELET COUNT, AUTOMATED 241 10^3/uL (150-450); RED BLOOD COUNT 2.69 10^6/uL (4.00-5.40); WHITE BLOOD COUNT 26.4 10^3/uL (4.0-10.0)
[2018-03-17 06:05] LABS: ALBUMIN 2.1 GM/DL (3.2-5.2); ALBUMIN/GLOBULIN RATIO 0.51 (1.00-1.93); ALKALINE PHOSPHATASE 102 U/L (45-117); ALT/SGPT 21 U/L (12-78); ANION GAP 7 MEQ/L (8-16); AST/SGOT 12 U/L (7-37); BILIRUBIN,TOTAL 0.3 MG/DL (0.2-1.0); BLOOD UREA NITROGEN 11 MG/DL (7-18); CALCIUM LEVEL 8.5 MG/DL (8.5-10.1); CARBON DIOXIDE LEVEL 30 MEQ/L (21-32); CHLORIDE LEVEL 106 MEQ/L (98-107); CREATININE FOR GFR 0.42 MG/DL (0.55-1.30); GLOMERULAR FILTRATION RATE > 60.0 (>51); GLUCOSE, FASTING 76 MG/DL (70-100); MAGNESIUM LEVEL 1.7 MG/DL (1.8-2.4); SODIUM LEVEL 143 MEQ/L (136-145); TOTAL PROTEIN 6.2 GM/DL (6.4-8.2)
[2018-03-17 06:31] LABS: UROBILINOGEN, URINE AUTO 0.2 mg/dL (0.0-2.0)
[2018-03-17] MEDS: TIOTROPIUM INHALER/CAPSULE (SPIRIVA) INH (07:15)
[2018-03-17] MEDS: ADVAIR HFA 230/21MCG INHALER INH ×2 (07:16→20:12)
[2018-03-17] MEDS: IPRATROPIUM 0.5MG/ALBUTEROL 2.5MG INH SOL UD 3ML (DUONEB)(J7620) NEB ×4 (07:16→20:12)
[2018-03-17] MEDS: MAG SULF 1GM/100ML (MAG RUN) 1 GM in APPROPRIATE DILUENT 1 EA IV (09:03)
[2018-03-17] MEDS: SENOKOT S TAB PO ×2 (09:03→20:59)
[2018-03-17] MEDS: OMEPRAZOLE 20 MG CAP PO (09:03)
[2018-03-17] MEDS: NS 1,000 ML IV (09:03)
[2018-03-17] MEDS: MAGNESIUM CHLORIDE 64 MG TABCR (SLO MAG) PO (09:04)
[2018-03-17] MEDS: ENOXAPARIN 30 MG/0.3 ML SYR (J1650) SC (09:04)
[2018-03-17] MEDS: predniSONE 10 MG TAB PO (09:04)
[2018-03-17] MEDS ORDERED: NYSTATIN CREAM 15 GM EXT (11:30)
[2018-03-17] MEDS: LIDOCAINE 2% JELLY 30 ML TOP ×3 (12:14→21:00)
[2018-03-17] MEDS: methylPREDNISolone INJ 125 MG/2 ML VIAL (J2930) IV ×2 (12:14→23:42)
[2018-03-18] MEDS: NS 1,000 ML IV (04:15)
[2018-03-18 05:31] LABS: BASO % 0.2 % (0.0-1.0); HEMATOCRIT 24.3 % (36.0-47.0); HEMOGLOBIN 7.5 g/dl (12.0-15.5); IMMATURE GRANULOCYTE % 1.8 % (0-3.0); LYMPH # 0.4 10^3/uL (1.5-4.5); LYMPH % 2.2 % (24.0-44.0); MEAN CORPUSCULAR HEMOGLOBIN 28.5 pg (27.0-33.0); MEAN CORPUSCULAR HGB CONC 30.9 g/dl (32.0-36.5); MEAN CORPUSCULAR VOLUME 92.4 fl (80.0-96.0); MONO # 0.2 10^3/uL (0.0-0.8); MONO % 0.9 % (0.0-5.0); NEUTROPHILS # 18.1 10^3/uL (1.8-7.7); NEUTROPHILS % 94.9 % (36.0-66.0); PLATELET COUNT, AUTOMATED 220 10^3/uL (150-450); RED BLOOD COUNT 2.63 10^6/uL (4.00-5.40); RED CELL DISTRIBUTION WIDTH 17.7 % (11.5-14.5)
[2018-03-18 05:48] LABS: ALBUMIN 2.1 GM/DL (3.2-5.2); ALBUMIN/GLOBULIN RATIO 0.49 (1.00-1.93); ALKALINE PHOSPHATASE 106 U/L (45-117); ALT/SGPT 22 U/L (12-78); ANION GAP 9 MEQ/L (8-16); AST/SGOT 7 U/L (7-37); BILIRUBIN,TOTAL 0.2 MG/DL (0.2-1.0); BLOOD UREA NITROGEN 11 MG/DL (7-18); CALCIUM LEVEL 8.4 MG/DL (8.5-10.1); CARBON DIOXIDE LEVEL 27 MEQ/L (21-32); CHLORIDE LEVEL 105 MEQ/L (98-107); CREATININE FOR GFR 0.47 MG/DL (0.55-1.30); GLOMERULAR FILTRATION RATE > 60.0 (>51); GLUCOSE, FASTING 213 MG/DL (70-100); MAGNESIUM LEVEL 1.8 MG/DL (1.8-2.4); POTASSIUM SERUM 4.1 MEQ/L (3.5-5.1); SODIUM LEVEL 141 MEQ/L (136-145); TOTAL PROTEIN 6.4 GM/DL (6.4-8.2)
[2018-03-18] MEDS: PIPERACILLIN/TAZOBACTAM SOD 2.25 GM in D5W MINI-BAG PLUS 50 ML IV ×4 (05:59→23:06)
[2018-03-18] MEDS: TIOTROPIUM INHALER/CAPSULE (SPIRIVA) INH (07:10)
[2018-03-18] MEDS: ADVAIR HFA 230/21MCG INHALER INH ×2 (07:10→19:43)
[2018-03-18] MEDS: IPRATROPIUM 0.5MG/ALBUTEROL 2.5MG INH SOL UD 3ML (DUONEB)(J7620) NEB ×4 (07:10→19:43)
[2018-03-18] MEDS: MAGNESIUM CHLORIDE 64 MG TABCR (SLO MAG) PO (08:32)
[2018-03-18] MEDS: SENOKOT S TAB PO ×2 (08:32→21:41)
[2018-03-18] MEDS: OMEPRAZOLE 20 MG CAP PO (08:32)
[2018-03-18] MEDS: ENOXAPARIN 30 MG/0.3 ML SYR (J1650) SC ×2 (08:32→08:36)
[2018-03-18] MEDS: LIDOCAINE 2% JELLY 30 ML TOP ×3 (08:33→21:00)
[2018-03-18] MEDS ORDERED: fentaNYL 25 MCG/HR PATCH TOP (09:00)
[2018-03-18] MEDS: clonazePAM 0.5 MG TAB PO (09:42)
[2018-03-18] MEDS: MORPHINE 4 MG/ML 1ML VIAL/SYRINGE (J2270) IV (09:42)
[2018-03-18] MEDS: methylPREDNISolone INJ 125 MG/2 ML VIAL (J2930) IV ×2 (10:58→23:05)
[2018-03-18] MEDS ORDERED: FENTANYL REMOVAL DOCUMENTATION MISC XX (12:30)
[2018-03-18] MEDS: fentaNYL 25 MCG/HR PATCH TOP (12:52)
[2018-03-18] MEDS: ACETAMINOPHEN TAB 650MG DOSE (2X325MG) PO (21:41)
[2018-03-18] MEDS: ALBUTEROL SULFATE 2.5 MG/0.5 ML INH NEB SOLN NEB (23:01)
[2018-03-19 01:54] LABS: IMMEDIATE SPIN CROSSMATCH 1 2
[2018-03-19] MEDS: PIPERACILLIN/TAZOBACTAM SOD 2.25 GM in D5W MINI-BAG PLUS 50 ML IV ×3 (05:30→17:24)
[2018-03-19 05:47] LABS: HEMATOCRIT 33.2 % (36.0-47.0); MEAN CORPUSCULAR HEMOGLOBIN 28.7 pg (27.0-33.0); MEAN CORPUSCULAR HGB CONC 31.6 g/dl (32.0-36.5); MEAN CORPUSCULAR VOLUME 90.7 fl (80.0-96.0); PLATELET COUNT, AUTOMATED 227 10^3/uL (150-450); RED BLOOD COUNT 3.66 10^6/uL (4.00-5.40)
[2018-03-19 06:07] LABS: ALBUMIN 2.2 GM/DL (3.2-5.2); ALBUMIN/GLOBULIN RATIO 0.52 (1.00-1.93); ALKALINE PHOSPHATASE 113 U/L (45-117); ALT/SGPT 37 U/L (12-78); ANION GAP 10 MEQ/L (8-16); AST/SGOT 16 U/L (7-37); BILIRUBIN,TOTAL 0.3 MG/DL (0.2-1.0); BLOOD UREA NITROGEN 17 MG/DL (7-18); CALCIUM LEVEL 8.5 MG/DL (8.5-10.1); CARBON DIOXIDE LEVEL 27 MEQ/L (21-32); CHLORIDE LEVEL 106 MEQ/L (98-107); CREATININE FOR GFR 0.52 MG/DL (0.55-1.30); GLOMERULAR FILTRATION RATE > 60.0 (>51); GLUCOSE, FASTING 121 MG/DL (70-100); POTASSIUM SERUM 4.4 MEQ/L (3.5-5.1); SODIUM LEVEL 143 MEQ/L (136-145); TOTAL PROTEIN 6.4 GM/DL (6.4-8.2)
[2018-03-19] MEDS: ALBUTEROL SULFATE 2.5 MG/0.5 ML INH NEB SOLN NEB (06:09)
[2018-03-19] MEDS: ACETAMINOPHEN TAB 650MG DOSE (2X325MG) PO ×2 (06:20→21:12)
[2018-03-19 06:41] LABS: HEMOGLOBIN 10.5 g/dl (12.0-15.5); POS COUNT POS FLAG; POSITIVE DIFF POS FLAG; WHITE BLOOD COUNT 30.1 10^3/uL (4.0-10.0)
[2018-03-19 06:45] LABS: ADD MANUAL DIFFER YES; DIFF SLIDE NUMBER 19
[2018-03-19 07:13] LABS: BANDS 5 % (< 11); LYMPHOCYTES 2 % (16-52); MONOCYTES 2 % (0-8); NEUTROPHILS 91 % (35-75)
[2018-03-19 07:14] LABS: ANISOCYTOSIS 1+; PLATELET ESTIMATE NORMAL (NORMAL); POIKILOCYTOSIS 1+; TOXIC GRANULATION 1+
[2018-03-19] MEDS: ADVAIR HFA 230/21MCG INHALER INH ×2 (07:46→20:36)
[2018-03-19] MEDS: TIOTROPIUM INHALER/CAPSULE (SPIRIVA) INH (07:46)
[2018-03-19] MEDS: IPRATROPIUM 0.5MG/ALBUTEROL 2.5MG INH SOL UD 3ML (DUONEB)(J7620) NEB ×4 (07:47→20:47)
[2018-03-19] MEDS: SENOKOT S TAB PO ×2 (08:56→21:00)
[2018-03-19] MEDS: MAGNESIUM CHLORIDE 64 MG TABCR (SLO MAG) PO (09:21)
[2018-03-19] MEDS: OMEPRAZOLE 20 MG CAP PO (09:21)
[2018-03-19] MEDS: IBUPROFEN 600 MG TAB PO (09:22)
[2018-03-19] MEDS: LIDOCAINE 2% JELLY 30 ML TOP ×3 (09:23→21:00)
[2018-03-19] MEDS: ENOXAPARIN 30 MG/0.3 ML SYR (J1650) SC (10:15)
[2018-03-19] MEDS: NS 1,000 ML IV (10:15)
[2018-03-19] MEDS: methylPREDNISolone INJ 125 MG/2 ML VIAL (J2930) IV (10:15)
[2018-03-19] MEDS: clonazePAM 0.5 MG TAB PO (14:30)
[2018-03-19] MEDS ORDERED: SLF 3 ML SYR IV (17:30)
[2018-03-19] MEDS: SLF 3 ML SYR IV (21:12)
[2018-03-19] MEDS: BACTRIM 160MG/800MG DS TAB PO (21:12)
[2018-03-20] MEDS: ACETAMINOPHEN TAB 650MG DOSE (2X325MG) PO ×2 (02:22→08:21)
[2018-03-20 05:23] LABS: BASO # 0.1 10^3/uL (0.0-0.2); BASO % 0.2 % (0.0-1.0); HEMATOCRIT 34.8 % (36.0-47.0); HEMOGLOBIN 10.9 g/dl (12.0-15.5); LYMPH # 0.9 10^3/uL (1.5-4.5); LYMPH % 3.2 % (24.0-44.0); MEAN CORPUSCULAR HEMOGLOBIN 28.5 pg (27.0-33.0); MEAN CORPUSCULAR HGB CONC 31.3 g/dl (32.0-36.5); MEAN CORPUSCULAR VOLUME 91.1 fl (80.0-96.0); MONO # 1.1 10^3/uL (0.0-0.8); NEUTROPHILS % 90.6 % (36.0-66.0); PLATELET COUNT, AUTOMATED 227 10^3/uL (150-450); RED BLOOD COUNT 3.82 10^6/uL (4.00-5.40); RED CELL DISTRIBUTION WIDTH 17.2 % (11.5-14.5); WHITE BLOOD COUNT 28.3 10^3/uL (4.0-10.0)
[2018-03-20 05:45] LABS: ALBUMIN 2.1 GM/DL (3.2-5.2); ALBUMIN/GLOBULIN RATIO 0.54 (1.00-1.93); ALKALINE PHOSPHATASE 115 U/L (45-117); ALT/SGPT 43 U/L (12-78); ANION GAP 8 MEQ/L (8-16); AST/SGOT 14 U/L (7-37); BILIRUBIN,TOTAL 0.3 MG/DL (0.2-1.0); BLOOD UREA NITROGEN 17 MG/DL (7-18); CALCIUM LEVEL 8.5 MG/DL (8.5-10.1); CARBON DIOXIDE LEVEL 28 MEQ/L (21-32); CHLORIDE LEVEL 105 MEQ/L (98-107); CREATININE FOR GFR 0.42 MG/DL (0.55-1.30); GLOMERULAR FILTRATION RATE > 60.0 (>51); GLUCOSE, FASTING 78 MG/DL (70-100); MAGNESIUM LEVEL 1.5 MG/DL (1.8-2.4); POTASSIUM SERUM 3.5 MEQ/L (3.5-5.1); SODIUM LEVEL 141 MEQ/L (136-145)
[2018-03-20 05:54] LABS: NEUTROPHILS # 25.6 10^3/uL (1.8-7.7); POSITIVE DIFF POS FLAG
[2018-03-20] MEDS: SLF 3 ML SYR IV (06:00)
[2018-03-20] MEDS: TIOTROPIUM INHALER/CAPSULE (SPIRIVA) INH (07:12)
[2018-03-20] MEDS: ADVAIR HFA 230/21MCG INHALER INH (07:12)
[2018-03-20] MEDS: IPRATROPIUM 0.5MG/ALBUTEROL 2.5MG INH SOL UD 3ML (DUONEB)(J7620) NEB ×2 (07:12→11:24)
[2018-03-20] MEDS: SENOKOT S TAB PO ×2 (08:22→08:25)
[2018-03-20] MEDS: OMEPRAZOLE 20 MG CAP PO (08:22)
[2018-03-20] MEDS: BACTRIM 160MG/800MG DS TAB PO (08:22)
[2018-03-20] MEDS: MAGNESIUM CHLORIDE 64 MG TABCR (SLO MAG) PO (08:22)
[2018-03-20] MEDS: ENOXAPARIN 30 MG/0.3 ML SYR (J1650) SC (08:22)
[2018-03-20] MEDS: predniSONE 20 MG TAB PO (08:22)
[2018-03-20] MEDS: LIDOCAINE 2% JELLY 30 ML TOP (08:23)
[2018-03-20] MEDS: clonazePAM 0.5 MG TAB PO (11:32)
[2018-03-20] MEDS: fentaNYL 25 MCG/HR PATCH TOP (11:32)
== END 2018-03-20 12:50 | disposition home or self-care (01) | DRG 532 ==
LOC: M PCU 03:15
PROC: 30233N1 Transfusion of Nonautologous Red Blood Cells into Peripheral Vein, Percutaneous Approach (ICD-10-PCS; principal; 2018-03-18)
DX: N82.0 Vesicovaginal fistula (principal); N39.0 Urinary tract infection, site not specified; Z99.81 Dependence on supplemental oxygen; N18.3 Chronic kidney disease, stage 3 (moderate); C52 Malignant neoplasm of vagina; J44.9 Chronic obstructive pulmonary disease, unspecified; M54.2 Cervicalgia; G89.3 Neoplasm related pain (acute) (chronic); F17.210 Nicotine dependence, cigarettes, uncomplicated; M81.0 Age-related osteoporosis without current pathological fracture; J30.9 Allergic rhinitis, unspecified; K21.9 Gastro-esophageal reflux disease without esophagitis; Z86.718 Personal history of other venous thrombosis and embolism; G43.909 Migraine, unspecified, not intractable, without status migrainosus; F41.9 Anxiety disorder, unspecified; Z98.51 Tubal ligation status; Z90.710 Acquired absence of both cervix and uterus; Z90.722 Acquired absence of ovaries, bilateral; Z79.899 Other long term (current) drug therapy; Z92.3 Personal history of irradiation

== ENCOUNTER 2018-03-17 09:53 | Outpatient (RCR) | payer OTHER | END 2018-04-12 | LOC: M ONCR 09:53 | DX: C52 Malignant neoplasm of vagina (principal) | CPT/HCPCS: 77336 ==

== ENCOUNTER 2018-03-30 15:15 | Inpatient (IN) | payer OTHER ==
[2018-03-30] MEDS ORDERED: IBUPROFEN 400 MG TAB PO (15:30)
[2018-03-30 15:57] LABS: KETONE, URINE AUTO RFX NEGATIVE (NEGATIVE); NITRITE, URINE AUTO RFX NEGATIVE (NEGATIVE); RBC, URINE AUTO RFX 7 /HPF (0-3); SPECIFIC GRAVITY UR AUTO RFX 1.005 (1.002-1.035); SQUAM EPITHELIAL CELL UR AURFX 1 /HPF (0-6)
[2018-03-30 16:08] LABS: LEUKOCYTE ESTERASE UR AUTO RFX 3+ (NEGATIVE); WBC, URINE AUTO RFX 47 /HPF (0-3)
[2018-03-30 16:25] LABS: BASO # 0.1 10^3/uL (0.0-0.2); BASO % 0.2 % (0.0-1.0); EOS # 0.2 10^3/uL (0.0-0.50); EOS % 0.9 % (0.0-3.0); HEMATOCRIT 38.2 % (36.0-47.0); HEMOGLOBIN 12.2 g/dl (12.0-15.5); IMMATURE GRANULOCYTE % 1.4 % (0-3.0); LYMPH # 0.6 10^3/uL (1.5-4.5); LYMPH % 2.5 % (24.0-44.0); MEAN CORPUSCULAR HEMOGLOBIN 28.1 pg (27.0-33.0); MEAN CORPUSCULAR HGB CONC 31.9 g/dl (32.0-36.5); MONO # 0.8 10^3/uL (0.0-0.8); MONO % 3.1 % (0.0-5.0); NEUTROPHILS # 22.7 10^3/uL (1.8-7.7); NEUTROPHILS % 91.9 % (36.0-66.0); PLATELET COUNT, AUTOMATED 234 10^3/uL (150-450); RED BLOOD COUNT 4.34 10^6/uL (4.00-5.40); WHITE BLOOD COUNT 24.6 10^3/uL (4.0-10.0)
[2018-03-30] MEDS: ACETAMINOPHEN TAB 650MG DOSE (2X325MG) PO (16:26)
[2018-03-30 16:48] LABS: LACTIC ACID SEPSIS PROTOCOL 0.7 MMOL/L (0.4-2.0)
[2018-03-30 16:59] LABS: ALBUMIN/GLOBULIN RATIO 0.79 (1.00-1.93); ALKALINE PHOSPHATASE 153 U/L (45-117); ALT/SGPT 56 U/L (12-78); ANION GAP 11 MEQ/L (8-16); AST/SGOT 16 U/L (7-37); BILIRUBIN,DIRECT 0.2 MG/DL (0.0-0.2); BILIRUBIN,TOTAL 0.6 MG/DL (0.2-1.0); BLOOD UREA NITROGEN 15 MG/DL (7-18); CALCIUM LEVEL 8.9 MG/DL (8.5-10.1); CARBON DIOXIDE LEVEL 27 MEQ/L (21-32); CHLORIDE LEVEL 89 MEQ/L (98-107); CREATININE FOR GFR 0.48 MG/DL (0.55-1.30); GLOMERULAR FILTRATION RATE > 60.0 (>51); GLUCOSE, FASTING 98 MG/DL (70-100); POTASSIUM SERUM 4.4 MEQ/L (3.5-5.1); SODIUM LEVEL 127 MEQ/L (136-145); TOTAL PROTEIN 6.8 GM/DL (6.4-8.2)
[2018-03-30] MEDS: cefTRIAXone SOD 1 GM in D5W MINI-BAG PLUS 50 ML IV (18:49)
[2018-03-30] MEDS ORDERED: predniSONE 10 MG TAB PO (19:15)
[2018-03-30] MEDS ORDERED: LR 1,000 ML IV (19:15)
[2018-03-30] MEDS: NS 1,000 ML IV ×2 (20:46→22:18)
[2018-03-30 20:47] LABS: OSMOLALITY URINE 235 MOSM/KG (500-800)
[2018-03-30 21:05] LABS: CHLORIDE,RANDOM URINE 46 MEQ/L; CREATININE,RANDOM URINE 15.1 MG/DL; POTASSIUM RANDOM URINE 26.7 MEQ/L; SODIUM,RANDOM URINE 35 MEQ/L; TOTAL PROTEIN,RANDOM URINE 27.3 MG/DL (0.0-12.0)
[2018-03-30] MEDS: predniSONE 20 MG TAB PO (22:28)
[2018-03-30] MEDS: ACETAMINOPHEN 500 MG TAB PO (22:28)
[2018-03-30] MEDS: SENOKOT S TAB PO (22:28)
[2018-03-30] MEDS: IPRATROPIUM 0.5MG/ALBUTEROL 2.5MG INH SOL UD 3ML (DUONEB)(J7620) NEB ×2 (22:54→23:48)
[2018-03-30 23:19] LABS: ANION GAP 9 MEQ/L (8-16); BLOOD UREA NITROGEN 15 MG/DL (7-18); CALCIUM LEVEL 8.5 MG/DL (8.5-10.1); CARBON DIOXIDE LEVEL 27 MEQ/L (21-32); CHLORIDE LEVEL 97 MEQ/L (98-107); GLOMERULAR FILTRATION RATE > 60.0 (>51); GLUCOSE, FASTING 136 MG/DL (70-100); POTASSIUM SERUM 3.7 MEQ/L (3.5-5.1); SODIUM LEVEL 133 MEQ/L (136-145)
[2018-03-30] MEDS: ADVAIR HFA 230/21MCG INHALER INH (23:49)
[2018-03-31] MEDS: IPRATROPIUM 0.5MG/ALBUTEROL 2.5MG INH SOL UD 3ML (DUONEB)(J7620) NEB ×4 (01:17→20:35)
[2018-03-31 03:17] LABS: ANION GAP 8 MEQ/L (8-16); BLOOD UREA NITROGEN 15 MG/DL (7-18); CALCIUM LEVEL 8.4 MG/DL (8.5-10.1); CARBON DIOXIDE LEVEL 27 MEQ/L (21-32); CHLORIDE LEVEL 101 MEQ/L (98-107); GLOMERULAR FILTRATION RATE > 60.0 (>51); GLUCOSE, FASTING 168 MG/DL (70-100); POTASSIUM SERUM 3.7 MEQ/L (3.5-5.1); SODIUM LEVEL 136 MEQ/L (136-145)
[2018-03-31] MEDS: IBUPROFEN 600 MG TAB PO ×2 (05:19→18:45)
[2018-03-31 07:22] LABS: HEMATOCRIT 36.6 % (36.0-47.0); HEMOGLOBIN 11.4 g/dl (12.0-15.5); MEAN CORPUSCULAR HEMOGLOBIN 28.3 pg (27.0-33.0); MEAN CORPUSCULAR HGB CONC 31.1 g/dl (32.0-36.5); MEAN CORPUSCULAR VOLUME 90.8 fl (80.0-96.0); PLATELET COUNT, AUTOMATED 196 10^3/uL (150-450); RED BLOOD COUNT 4.03 10^6/uL (4.00-5.40); RED CELL DISTRIBUTION WIDTH 16.8 % (11.5-14.5); WHITE BLOOD COUNT 16.6 10^3/uL (4.0-10.0)
[2018-03-31 08:07] LABS: ANION GAP 9 MEQ/L (8-16); BLOOD UREA NITROGEN 17 MG/DL (7-18); CALCIUM LEVEL 8.3 MG/DL (8.5-10.1); CARBON DIOXIDE LEVEL 27 MEQ/L (21-32); CHLORIDE LEVEL 101 MEQ/L (98-107); CREATININE FOR GFR 0.37 MG/DL (0.55-1.30); GLOMERULAR FILTRATION RATE > 60.0 (>51); GLUCOSE, FASTING 110 MG/DL (70-100); MAGNESIUM LEVEL 2.1 MG/DL (1.8-2.4); POTASSIUM SERUM 4.7 MEQ/L (3.5-5.1); SODIUM LEVEL 137 MEQ/L (136-145)
[2018-03-31] MEDS: TIOTROPIUM INHALER/CAPSULE (SPIRIVA) INH (10:09)
[2018-03-31] MEDS: SENOKOT S TAB PO ×2 (10:11→20:38)
[2018-03-31] MEDS: ENOXAPARIN 40 MG/0.4 ML SYRINGE (J1650) SC ×2 (10:12→10:13)
[2018-03-31] MEDS: predniSONE 20 MG TAB PO (10:12)
[2018-03-31] MEDS: OMEPRAZOLE 20 MG CAP PO (10:12)
[2018-03-31] MEDS: ADVAIR HFA 230/21MCG INHALER INH ×2 (10:13→20:36)
[2018-03-31 12:10] LABS: ANION GAP 7 MEQ/L (8-16); BLOOD UREA NITROGEN 16 MG/DL (7-18); CALCIUM LEVEL 8.4 MG/DL (8.5-10.1); CARBON DIOXIDE LEVEL 28 MEQ/L (21-32); CHLORIDE LEVEL 100 MEQ/L (98-107); CREATININE FOR GFR 0.42 MG/DL (0.55-1.30); GLOMERULAR FILTRATION RATE > 60.0 (>51); GLUCOSE, FASTING 105 MG/DL (70-100); POTASSIUM SERUM 3.9 MEQ/L (3.5-5.1); SODIUM LEVEL 135 MEQ/L (136-145)
[2018-03-31] MEDS ORDERED: clonazePAM 0.5 MG TAB PO (13:00)
[2018-03-31] MEDS: ACETAMINOPHEN 500 MG TAB PO (16:47)
[2018-03-31] MEDS: cefTRIAXone SOD 2 GM in D5W MINI-BAG PLUS 50 ML IV (18:45)
[2018-03-31] MEDS: LIDOCAINE 2% JELLY 30 ML TOP (21:51)
[2018-04-01] MEDS: ACETAMINOPHEN 500 MG TAB PO ×2 (02:04→08:07)
[2018-04-01] MEDS: IPRATROPIUM 0.5MG/ALBUTEROL 2.5MG INH SOL UD 3ML (DUONEB)(J7620) NEB ×2 (02:10→07:43)
[2018-04-01 05:54] LABS: HEMATOCRIT 37.3 % (36.0-47.0); HEMOGLOBIN 11.5 g/dl (12.0-15.5); MEAN CORPUSCULAR HEMOGLOBIN 27.9 pg (27.0-33.0); MEAN CORPUSCULAR HGB CONC 30.8 g/dl (32.0-36.5); MEAN CORPUSCULAR VOLUME 90.5 fl (80.0-96.0); PLATELET COUNT, AUTOMATED 210 10^3/uL (150-450); RED BLOOD COUNT 4.12 10^6/uL (4.00-5.40); RED CELL DISTRIBUTION WIDTH 16.7 % (11.5-14.5); WHITE BLOOD COUNT 23.6 10^3/uL (4.0-10.0)
[2018-04-01 06:16] LABS: ANION GAP 10 MEQ/L (8-16); BLOOD UREA NITROGEN 9 MG/DL (7-18); CALCIUM LEVEL 8.6 MG/DL (8.5-10.1); CARBON DIOXIDE LEVEL 23 MEQ/L (21-32); CHLORIDE LEVEL 104 MEQ/L (98-107); CREATININE FOR GFR 0.38 MG/DL (0.55-1.30); GLOMERULAR FILTRATION RATE > 60.0 (>51); GLUCOSE, FASTING 92 MG/DL (70-100); MAGNESIUM LEVEL 1.7 MG/DL (1.8-2.4); POTASSIUM SERUM 4.2 MEQ/L (3.5-5.1); SODIUM LEVEL 137 MEQ/L (136-145)
[2018-04-01] MEDS: MAG SULF 1GM/100ML (MAG RUN) 1 GM in APPROPRIATE DILUENT 1 EA IV (06:42)
[2018-04-01] MEDS: TIOTROPIUM INHALER/CAPSULE (SPIRIVA) INH (07:42)
[2018-04-01] MEDS: ADVAIR HFA 230/21MCG INHALER INH (07:43)
[2018-04-01] MEDS: OMEPRAZOLE 20 MG CAP PO (08:06)
[2018-04-01] MEDS: predniSONE 20 MG TAB PO (08:07)
[2018-04-01] MEDS: LIDOCAINE 2% JELLY 30 ML TOP (08:08)
[2018-04-01] MEDS: ENOXAPARIN 40 MG/0.4 ML SYRINGE (J1650) SC (08:53)
[2018-04-01] MEDS: SENOKOT S TAB PO (08:53)
[2018-04-01] MEDS: metroNIDAZOLE 500 MG in APPROPRIATE DILUENT 1 EA IV (10:00)
[2018-04-02] MEDS ORDERED: predniSONE 10 MG TAB PO (09:00)
== END 2018-04-01 12:36 | disposition home health service (06) | DRG 530 ==
LOC: M ED 15:15 → M ED INP 19:18 → M PCU 22:08
DX: C52 Malignant neoplasm of vagina (principal); E87.1 Hypo-osmolality and hyponatremia; N18.3 Chronic kidney disease, stage 3 (moderate); E83.42 Hypomagnesemia; J44.9 Chronic obstructive pulmonary disease, unspecified; R50.9 Fever, unspecified; M10.9 Gout, unspecified; K21.9 Gastro-esophageal reflux disease without esophagitis; M54.2 Cervicalgia; M54.5 Low back pain; Z86.718 Personal history of other venous thrombosis and embolism; F41.9 Anxiety disorder, unspecified; F17.200 Nicotine dependence, unspecified, uncomplicated; D72.829 Elevated white blood cell count, unspecified

== ENCOUNTER 2018-04-13 14:47 | Outpatient (RCR) | payer OTHER | END 2018-05-13 | LOC: M ONCR 04-14 14:56 | DX: C52 Malignant neoplasm of vagina (principal) | CPT/HCPCS: 77336 ==

== ENCOUNTER → 2018-04-15 | Outpatient (CLI) | payer OTHER ==
[~2018-04-15] MED LIST changes: -BACTRIM 160MG/800MG DS TAB As Ordered; -LIDOCAINE 1% MDV 20ML VIAL As Ordered
== END ==
LOC: M RADPRO 12:38
DX: N13.0 Hydronephrosis with ureteropelvic junction obstruction (principal)
CPT/HCPCS: 50435

== ENCOUNTER → 2018-05-07 | Outpatient (CLI) | payer OTHER | LOC: M RAD 12:44 | DX: N13.30 Unspecified hydronephrosis (principal) | CPT/HCPCS: 74018 ==

== ENCOUNTER → 2018-07-01 | Outpatient (CLI) | payer OTHER ==
[~2018-07-01] MED LIST changes: +ADV500INH INH; +AMOX500C PO; +BACT800T5 PO; +CALC1TAB30 PO; +CEFU50TA PO; +CLON0.5T8 PO; +COLA100C5 PO; +COMBAER6 INH; +CYCL10TA PO; +CYMB1CAP4 PO; +CYMB1CAP5 PO; +ENOX40IN3 SC; +IBUP-1022 PO; +IPRA0.00 INH; -ISOVUE-300 61% 50ML VIAL (Q9967) As Ordered; +ISOVUE-300 61% 50ML VIAL (Q9967) As Ordered ONE; +LEVO500T3 PO; +LIDOCAINE 1% MDV 20ML VIAL As Ordered ONE; +MAGN400T5 PO; +METR1TAB66 PO; +MIRA3350 PO; +MONT10TA2 PO; +MORP20SO3 PO; +MUCI600T31 PO; +NICO21PAT TD; +OMEP40CA2 PO; +OXYC-517 PO; +OXYC10TA12 PO; +PRED10TA2 PO; +PRED20TA PO; +PROAAER10 INH; +RA A PO; +SILV40CR EXT; +SING10TA32 PO; +SPIR12.9 INH; +SULF1TAB93 PO; +TYLE500T78 PO; +VARE1TA PO; +[UNRECOGNIZED DRUG - CODE] TOP; +oxygen
--- NOTE | 2018-07-01 20:31 | REP ---
The procedure was performed under the direct supervision of Dr. De Jesus CLINICAL HISTORY: Vaginal cancer/left ureteral obstruction PROCEDURE: Left nephrostomy drainage catheter exchange EBL: Zero FLUORO TIME: 0.5 minutesCONTRAST: 10 ml of Isovue 300DEVICE USED: 10 F Nephrostomy (Resolve) catheter The risks and benefits of the procedure were explained to the patient and informed consent was obtained. The patient was brought into the interventional radiology suite. A time out procedure was performed. The patient was placed in the prone oblique position . The existing indwelling catheter and the area surrounding the insertion site were prepped and draped in a sterile fashion. Contrast was injected through the existing 10 F Nephrostomy catheter. Images demonstrate good catheter placement. The existing catheter was unlocked and removed over the guide wire. A new 10 F nephrostomy catheter was advanced over the guide wire. The guidewire was removed and the distal loop of the nephrostomy drainage catheter was formed and locked in the renal pelvis. Contrast was injected, confirming satisfactory drainage catheter positioned. The drainage catheter exit site was covered with sterile dressing. The nephrostomy drainage catheter was flushed and connected to gravity drainage bag. Nephrostogram was performed and images demonstrate free flow of contrast through the ureter and into the bladder. The patient tolerated the procedure well and there were no immediate complications. This procedure was performed using fluoroscopy. Impression: Nephrostogram was performed and images demonstrate free flow of contrast through the ureter and into the bladder. Successful exchange of nephrostomy urinary diversion tube on the left As discussed above. Plan: Routine catheter exchange in approximately 10-12 weeks or earlier if signs of tube dysfunction were to occur. Reviewed by BARBARA Clarke 07/01/2018 04:06 P Electronically Signed by Juan De Jesus MD 07/01/2018 08:22 P
== END ==
LOC: M RADPRO 12:12
PROVIDERS: ATTEND Nurse Practitioner Family
DX: N13.5 Crossing vessel and stricture of ureter without hydronephrosis (principal); C52 Malignant neoplasm of vagina
CPT/HCPCS: 50435; 75984; 87075; 87086; 87205; C1729; C1769; Q9967

== ENCOUNTER → 2018-07-01 | Outpatient (REF) | payer OTHER ==
[~2018-07-01] MED LIST changes: -ISOVUE-300 61% 50ML VIAL (Q9967) As Ordered ONE; -LIDOCAINE 1% MDV 20ML VIAL As Ordered ONE
[2018-07-01 10:20] LABS: HEMATOCRIT 41.3 % (36.0-47.0); HEMOGLOBIN 13.2 g/dl (12.0-15.5); MEAN CORPUSCULAR HEMOGLOBIN 31.1 pg (27.0-33.0); MEAN CORPUSCULAR VOLUME 97.2 fl (80.0-96.0); PLATELET COUNT, AUTOMATED 270 10^3/uL (150-450); RED BLOOD COUNT 4.25 10^6/uL (4.00-5.40)
[2018-07-01 10:27] LABS: WHITE BLOOD COUNT 31.1 10^3/uL (4.0-10.0)
[2018-07-01 10:56] LABS: ALT/SGPT 37 U/L (12-78); AMYLASE 38 U/L (25-115); BILIRUBIN,TOTAL 0.3 MG/DL (0.2-1.0); BLOOD UREA NITROGEN 22 MG/DL (7-18); CALCIUM LEVEL 8.4 MG/DL (8.5-10.1); CARBON DIOXIDE LEVEL 27 MEQ/L (21-32); CHLORIDE LEVEL 103 MEQ/L (98-107); CREATININE FOR GFR 0.43 MG/DL (0.55-1.30); GLOMERULAR FILTRATION RATE > 60.0 (>51); GLUCOSE, FASTING 110 MG/DL (70-100); LIPASE 80 U/L (73-393); SODIUM LEVEL 139 MEQ/L (136-145); TOTAL PROTEIN 6.4 GM/DL (6.4-8.2)
[2018-07-01 11:03] LABS: ATYPICAL LYMPH 1 % (0-5); LYMPHOCYTES 3 % (16-52); MONOCYTES 1 % (0-8); NEUTROPHILS 94 % (35-75); PLATELET ESTIMATE NORMAL (NORMAL)
== END ==
LOC: M SFHCPLAZ 09:27
PROVIDERS: ATTEND Physician Assistant Medical
DX: C52 Malignant neoplasm of vagina (principal)

== ENCOUNTER → 2018-07-02 | Outpatient (REF) | payer OTHER | LOC: M SFHCPLAZ 11:47 | PROVIDERS: ATTEND Physician Assistant Medical | DX: J44.1 Chronic obstructive pulmonary disease with (acute) exacerbation (principal) ==

== ENCOUNTER 2018-07-04 14:25 | Inpatient (IN) | payer OTHER ==
[2018-07-04 15:06] LABS: BASO % 0.2 % (0.0-1.0); IMMATURE GRANULOCYTE % 0.8 % (0-3.0); LYMPH # 0.4 10^3/uL (1.5-4.5); LYMPH % 1.5 % (24.0-44.0); MEAN CORPUSCULAR HEMOGLOBIN 30.9 pg (27.0-33.0); MEAN CORPUSCULAR HGB CONC 32.5 g/dl (32.0-36.5); MONO # 1.1 10^3/uL (0.0-0.8); MONO % 4.4 % (0.0-5.0); NEUTROPHILS % 93.1 % (36.0-66.0); PLATELET COUNT, AUTOMATED 334 10^3/uL (150-450); RED BLOOD COUNT 4.21 10^6/uL (4.00-5.40); RED CELL DISTRIBUTION WIDTH 15.4 % (11.5-14.5); WHITE BLOOD COUNT 24.7 10^3/uL (4.0-10.0)
[2018-07-04] MEDS: methylPREDNISolone INJ 125 MG/2 ML VIAL (J2930) IV (15:09)
[2018-07-04] MEDS: IPRATROPIUM 0.5MG/ALBUTEROL 2.5MG INH SOL UD 3ML (DUONEB)(J7620) NEB ×5 (15:10→23:09)
[2018-07-04 15:17] LABS: PROTHROMBIN TIME 12.3 SECONDS (12.1-14.4)
[2018-07-04 15:18] LABS: PARTIAL THROMBOPLASTIN TIME 27.1 SECONDS (25.4-37.6)
[2018-07-04 15:40] LABS: ALBUMIN 3.1 GM/DL (3.2-5.2); ALBUMIN/GLOBULIN RATIO 0.89 (1.00-1.93); ALKALINE PHOSPHATASE 111 U/L (45-117); ALT/SGPT 28 U/L (12-78); ANION GAP 6 MEQ/L (8-16); AST/SGOT 14 U/L (7-37); BILIRUBIN,DIRECT 0.1 MG/DL (0.0-0.2); BILIRUBIN,TOTAL 0.3 MG/DL (0.2-1.0); BLOOD UREA NITROGEN 8 MG/DL (7-18); CARBON DIOXIDE LEVEL 31 MEQ/L (21-32); CHLORIDE LEVEL 101 MEQ/L (98-107); CPK CREATINE PHOSPHOKINASE 41 U/L (26-192); CREATININE FOR GFR 0.35 MG/DL (0.55-1.30); FREE T4 1.34 NG/DL (0.76-1.46); GLOMERULAR FILTRATION RATE > 60.0 (>51); GLUCOSE, FASTING 74 MG/DL (70-100); LIPASE 64 U/L (73-393); MB/CK RELATIVE INDEX 6.83 (< OR =4); NT-PRO BNP 130 PG/ML (<125); POTASSIUM SERUM 4.2 MEQ/L (3.5-5.1); SODIUM LEVEL 138 MEQ/L (136-145); THYROID STIMULATING HORMONE 0.394 uIU/ML (0.358-3.740); TOTAL PROTEIN 6.6 GM/DL (6.4-8.2); TROPONIN I < 0.02 NG/ML (< 0.10)
[2018-07-04] MEDS ORDERED: ISOVUE-370 76% 100ML VIAL (Q9967) As Ordered (15:49)
[2018-07-04 16:03] LABS: ABG BASE EXCESS 4.5 (-2.0-2.0); ABG HCO3 29.1 MEQ/L (22.0-26.0); ABG O2 SATURATION 93.1 % (95.0-99.0); ABG PARTIAL PRESSURE CO2 43.1 mmHg (35.0-45.0); ABG STANDARD HCO3 28.4 MEQ/L (22.0-26.0); ABG TOTAL CO2 30.4 MEQ/L (22.0-29.0); ABG pH (ARTERIAL) 7.447 UNITS (7.350-7.450)
[2018-07-04] MEDS ORDERED: ALBUTEROL SULFATE 2.5 MG/0.5 ML INH NEB SOLN NEB (19:00)
[2018-07-04] MEDS ORDERED: BISACODYL 5 MG TAB PO (19:00)
[2018-07-04] MEDS ORDERED: ONDANSETRON 4 MG TAB (S0181) PO (19:00)
[2018-07-04] MEDS ORDERED: ALBUTEROL 90 MCG/ACT 8GM HFA INHALER INH (19:15)
[2018-07-04] MEDS ORDERED: NICOTINE 21MG/24HR 1 EA TRANSDERMAL TD (19:30)
[2018-07-04] MEDS: oxyCODONE 5MG TAB PO (20:13)
[2018-07-04] MEDS: VARENICLINE 1 MG TABLET PO (21:00)
[2018-07-04] MEDS: guaiFENesin ER 600 MG TAB PO (21:35)
[2018-07-04] MEDS: clonazePAM 0.5 MG TAB PO (21:35)
[2018-07-04] MEDS: IBUPROFEN 600 MG TAB PO (21:35)
[2018-07-04] MEDS: ADVAIR HFA 230/21MCG INHALER INH (23:09)
[2018-07-04 23:43] LABS: CPK CREATINE PHOSPHOKINASE 37 U/L (26-192); MB/CK RELATIVE INDEX 6.76 (< OR =4); TROPONIN I < 0.02 NG/ML (< 0.10)
[2018-07-05] MEDS: IPRATROPIUM 0.5MG/ALBUTEROL 2.5MG INH SOL UD 3ML (DUONEB)(J7620) NEB ×6 (05:02→23:19)
[2018-07-05 06:18] LABS: BASO % 0.1 % (0.0-1.0); HEMATOCRIT 38.7 % (36.0-47.0); HEMOGLOBIN 12.6 g/dl (12.0-15.5); LYMPH # 0.3 10^3/uL (1.5-4.5); LYMPH % 1.3 % (24.0-44.0); MEAN CORPUSCULAR HEMOGLOBIN 30.7 pg (27.0-33.0); MEAN CORPUSCULAR HGB CONC 32.6 g/dl (32.0-36.5); MEAN CORPUSCULAR VOLUME 94.4 fl (80.0-96.0); MONO # 0.4 10^3/uL (0.0-0.8); MONO % 1.7 % (0.0-5.0); NEUTROPHILS # 23.8 10^3/uL (1.8-7.7); NEUTROPHILS % 95.9 % (36.0-66.0); PLATELET COUNT, AUTOMATED 353 10^3/uL (150-450); RED CELL DISTRIBUTION WIDTH 14.8 % (11.5-14.5); WHITE BLOOD COUNT 24.8 10^3/uL (4.0-10.0)
[2018-07-05] MEDS: oxyCODONE 5MG TAB PO ×2 (06:21→19:58)
[2018-07-05 06:32] LABS: CPK CREATINE PHOSPHOKINASE 35 U/L (26-192); MB/CK RELATIVE INDEX 6.86 (< OR =4); TROPONIN I < 0.02 NG/ML (< 0.10)
[2018-07-05 06:34] LABS: ANION GAP 8 MEQ/L (8-16); BLOOD UREA NITROGEN 17 MG/DL (7-18); CALCIUM LEVEL 9.3 MG/DL (8.5-10.1); CARBON DIOXIDE LEVEL 28 MEQ/L (21-32); CHLORIDE LEVEL 97 MEQ/L (98-107); CREATININE FOR GFR 0.61 MG/DL (0.55-1.30); GLOMERULAR FILTRATION RATE > 60.0 (>51); GLUCOSE, FASTING 175 MG/DL (70-100); MAGNESIUM LEVEL 1.9 MG/DL (1.8-2.4); POTASSIUM SERUM 4.6 MEQ/L (3.5-5.1); SODIUM LEVEL 133 MEQ/L (136-145)
[2018-07-05] MEDS: TIOTROPIUM INHALER/CAPSULE (SPIRIVA) INH (07:17)
[2018-07-05] MEDS: ADVAIR HFA 230/21MCG INHALER INH ×2 (07:17→20:15)
[2018-07-05] MEDS: DULoxetine 20 MG CAP (CYMBALTA) PO (09:35)
[2018-07-05] MEDS: VARENICLINE 1 MG TABLET PO ×2 (09:35→20:05)
[2018-07-05] MEDS: ENOXAPARIN 30 MG/0.3 ML SYR (J1650) SC (09:35)
[2018-07-05] MEDS: methylPREDNISolone INJ 125 MG/2 ML VIAL (J2930) IV ×2 (09:35→20:05)
[2018-07-05] MEDS: ACETAMINOPHEN TAB 650MG DOSE (2X325MG) PO (09:38)
[2018-07-05] MEDS: clonazePAM 0.5 MG TAB PO ×2 (09:38→19:58)
[2018-07-05] MEDS: guaiFENesin ER 600 MG TAB PO (10:38)
[2018-07-05] MEDS: IBUPROFEN 600 MG TAB PO (21:49)
[2018-07-06] MEDS: IPRATROPIUM 0.5MG/ALBUTEROL 2.5MG INH SOL UD 3ML (DUONEB)(J7620) NEB ×5 (04:00→20:25)
[2018-07-06 05:30] LABS: BASO % 0.2 % (0.0-1.0); HEMATOCRIT 33.6 % (36.0-47.0); HEMOGLOBIN 10.9 g/dl (12.0-15.5); IMMATURE GRANULOCYTE % 1.8 % (0-3.0); LYMPH % 0.6 % (24.0-44.0); MEAN CORPUSCULAR HEMOGLOBIN 31.1 pg (27.0-33.0); MEAN CORPUSCULAR HGB CONC 32.4 g/dl (32.0-36.5); MONO # 0.4 10^3/uL (0.0-0.8); MONO % 1.5 % (0.0-5.0); NEUTROPHILS % 95.9 % (36.0-66.0); PLATELET COUNT, AUTOMATED 312 10^3/uL (150-450); RED CELL DISTRIBUTION WIDTH 14.8 % (11.5-14.5); WHITE BLOOD COUNT 26.2 10^3/uL (4.0-10.0)
[2018-07-06 05:58] LABS: ANION GAP 4 MEQ/L (8-16); BLOOD UREA NITROGEN 20 MG/DL (7-18); CALCIUM LEVEL 8.7 MG/DL (8.5-10.1); CARBON DIOXIDE LEVEL 31 MEQ/L (21-32); CHLORIDE LEVEL 103 MEQ/L (98-107); CREATININE FOR GFR 0.48 MG/DL (0.55-1.30); GLOMERULAR FILTRATION RATE > 60.0 (>51); GLUCOSE, FASTING 174 MG/DL (70-100); MAGNESIUM LEVEL 1.8 MG/DL (1.8-2.4); POTASSIUM SERUM 4.3 MEQ/L (3.5-5.1); SODIUM LEVEL 138 MEQ/L (136-145)
[2018-07-06 06:23] LABS: LYMPH # 0.2 10^3/uL (1.5-4.5); NEUTROPHILS # 25.1 10^3/uL (1.8-7.7); POSITIVE DIFF POS FLAG
[2018-07-06] MEDS: TIOTROPIUM INHALER/CAPSULE (SPIRIVA) INH (07:37)
[2018-07-06] MEDS: ADVAIR HFA 230/21MCG INHALER INH ×2 (07:37→20:25)
[2018-07-06] MEDS: VARENICLINE 1 MG TABLET PO ×2 (08:51→20:34)
[2018-07-06] MEDS: ENOXAPARIN 30 MG/0.3 ML SYR (J1650) SC (08:51)
[2018-07-06] MEDS: clonazePAM 0.5 MG TAB PO ×2 (08:51→20:44)
[2018-07-06] MEDS: oxyCODONE 5MG TAB PO ×2 (08:52→20:44)
[2018-07-06] MEDS: methylPREDNISolone INJ 125 MG/2 ML VIAL (J2930) IV ×2 (08:52→20:34)
[2018-07-06] MEDS: DULoxetine 20 MG CAP (CYMBALTA) PO (08:52)
[2018-07-06] MEDS: guaiFENesin ER 600 MG TAB PO (08:53)
[2018-07-06] MEDS: IBUPROFEN 600 MG TAB PO (16:52)
[2018-07-07 05:50] LABS: BASO % 0.1 % (0.0-1.0); HEMATOCRIT 32.2 % (36.0-47.0); HEMOGLOBIN 10.3 g/dl (12.0-15.5); LYMPH % 0.7 % (24.0-44.0); MEAN CORPUSCULAR HEMOGLOBIN 30.6 pg (27.0-33.0); MEAN CORPUSCULAR VOLUME 95.5 fl (80.0-96.0); MONO # 0.5 10^3/uL (0.0-0.8); MONO % 2.1 % (0.0-5.0); NEUTROPHILS % 95.1 % (36.0-66.0); PLATELET COUNT, AUTOMATED 291 10^3/uL (150-450); RED BLOOD COUNT 3.37 10^6/uL (4.00-5.40); RED CELL DISTRIBUTION WIDTH 14.6 % (11.5-14.5); WHITE BLOOD COUNT 25.2 10^3/uL (4.0-10.0)
[2018-07-07 06:03] LABS: ANION GAP 6 MEQ/L (8-16); BLOOD UREA NITROGEN 22 MG/DL (7-18); CALCIUM LEVEL 8.4 MG/DL (8.5-10.1); CARBON DIOXIDE LEVEL 30 MEQ/L (21-32); CHLORIDE LEVEL 103 MEQ/L (98-107); CREATININE FOR GFR 0.41 MG/DL (0.55-1.30); GLOMERULAR FILTRATION RATE > 60.0 (>51); GLUCOSE, FASTING 154 MG/DL (70-100); MAGNESIUM LEVEL 1.9 MG/DL (1.8-2.4); POTASSIUM SERUM 4.5 MEQ/L (3.5-5.1); SODIUM LEVEL 139 MEQ/L (136-145)
[2018-07-07] MEDS: IPRATROPIUM 0.5MG/ALBUTEROL 2.5MG INH SOL UD 3ML (DUONEB)(J7620) NEB ×7 (06:09→21:22)
[2018-07-07 06:15] LABS: LYMPH # 0.2 10^3/uL (1.5-4.5); POSITIVE DIFF POS FLAG
[2018-07-07] MEDS: TIOTROPIUM INHALER/CAPSULE (SPIRIVA) INH ×2 (08:00→11:48)
[2018-07-07] MEDS: ADVAIR HFA 230/21MCG INHALER INH ×3 (08:00→21:21)
[2018-07-07] MEDS: methylPREDNISolone INJ 125 MG/2 ML VIAL (J2930) IV (08:58)
[2018-07-07] MEDS: ENOXAPARIN 30 MG/0.3 ML SYR (J1650) SC (08:58)
[2018-07-07] MEDS: DULoxetine 20 MG CAP (CYMBALTA) PO (08:58)
[2018-07-07] MEDS: VARENICLINE 1 MG TABLET PO ×2 (09:02→21:29)
[2018-07-07] MEDS: oxyCODONE 5MG TAB PO ×2 (09:04→21:36)
[2018-07-07] MEDS: clonazePAM 0.5 MG TAB PO ×2 (09:12→21:36)
[2018-07-07] MEDS: IBUPROFEN 600 MG TAB PO (16:30)
[2018-07-07] MEDS: CALCIUM CARBONATE 500 MG CHEW U/D PO (18:45)
[2018-07-07] MEDS: predniSONE 10 MG TAB PO (21:29)
[2018-07-07] MEDS: guaiFENesin ER 600 MG TAB PO (21:35)
[2018-07-08] MEDS: IPRATROPIUM 0.5MG/ALBUTEROL 2.5MG INH SOL UD 3ML (DUONEB)(J7620) NEB ×4 (01:38→11:08)
[2018-07-08] MEDS: IBUPROFEN 600 MG TAB PO (02:46)
[2018-07-08 06:22] LABS: BASO % 0.2 % (0.0-1.0); HEMATOCRIT 34.2 % (36.0-47.0); HEMOGLOBIN 10.9 g/dl (12.0-15.5); IMMATURE GRANULOCYTE % 3.1 % (0-3.0); LYMPH % 0.9 % (24.0-44.0); MEAN CORPUSCULAR HEMOGLOBIN 30.5 pg (27.0-33.0); MEAN CORPUSCULAR HGB CONC 31.9 g/dl (32.0-36.5); MEAN CORPUSCULAR VOLUME 95.8 fl (80.0-96.0); MONO # 0.7 10^3/uL (0.0-0.8); MONO % 2.8 % (0.0-5.0); NEUTROPHILS # 23.9 10^3/uL (1.8-7.7); PLATELET COUNT, AUTOMATED 299 10^3/uL (150-450); RED BLOOD COUNT 3.57 10^6/uL (4.00-5.40); RED CELL DISTRIBUTION WIDTH 14.6 % (11.5-14.5); WHITE BLOOD COUNT 25.7 10^3/uL (4.0-10.0)
[2018-07-08 06:37] LABS: ANION GAP 4 MEQ/L (8-16); BLOOD UREA NITROGEN 18 MG/DL (7-18); CALCIUM LEVEL 8.4 MG/DL (8.5-10.1); CARBON DIOXIDE LEVEL 32 MEQ/L (21-32); CHLORIDE LEVEL 102 MEQ/L (98-107); CREATININE FOR GFR 0.45 MG/DL (0.55-1.30); GLOMERULAR FILTRATION RATE > 60.0 (>51); GLUCOSE, FASTING 118 MG/DL (70-100); POTASSIUM SERUM 4.5 MEQ/L (3.5-5.1); SODIUM LEVEL 138 MEQ/L (136-145)
[2018-07-08 07:31] LABS: LYMPH # 0.2 10^3/uL (1.5-4.5); POSITIVE DIFF POS FLAG
[2018-07-08] MEDS: TIOTROPIUM INHALER/CAPSULE (SPIRIVA) INH (07:44)
[2018-07-08] MEDS: ADVAIR HFA 230/21MCG INHALER INH (07:44)
[2018-07-08] MEDS: clonazePAM 0.5 MG TAB PO (09:43)
[2018-07-08] MEDS: ENOXAPARIN 30 MG/0.3 ML SYR (J1650) SC (09:43)
[2018-07-08] MEDS: predniSONE 10 MG TAB PO (09:44)
[2018-07-08] MEDS: VARENICLINE 1 MG TABLET PO (09:44)
[2018-07-08] MEDS: guaiFENesin ER 600 MG TAB PO (09:44)
[2018-07-08] MEDS: DULoxetine 20 MG CAP (CYMBALTA) PO (09:44)
[2018-07-08] MEDS: oxyCODONE 5MG TAB PO (09:47)
== END 2018-07-08 14:17 | disposition home health service (06) | DRG 140 ==
LOC: M MSPAV 07-06 22:35 → M ED 14:25 → M ED INP 18:35 → M PCU 21:06
DX: J44.1 Chronic obstructive pulmonary disease with (acute) exacerbation (principal); J96.21 Acute and chronic respiratory failure with hypoxia; R91.8 Other nonspecific abnormal finding of lung field; F17.200 Nicotine dependence, unspecified, uncomplicated; N18.2 Chronic kidney disease, stage 2 (mild); D72.829 Elevated white blood cell count, unspecified; Z79.899 Other long term (current) drug therapy

== ENCOUNTER → 2018-07-04 | Outpatient (REF) | payer OTHER ==
[~2018-07-04] MED LIST changes: +DURA25DI3 TOP; +METR-201 PO; -METR1TAB66 PO; -[UNRECOGNIZED DRUG - CODE] TOP
[2018-07-04 14:34] LABS: BASO % 0.2 % (0.0-1.0); EOS % 0.1 % (0.0-3.0); HEMATOCRIT 37.7 % (36.0-47.0); HEMOGLOBIN 12.4 g/dl (12.0-15.5); MEAN CORPUSCULAR HEMOGLOBIN 31.2 pg (27.0-33.0); MEAN CORPUSCULAR HGB CONC 32.9 g/dl (32.0-36.5); MEAN CORPUSCULAR VOLUME 94.7 fl (80.0-96.0); NEUTROPHILS # 22.3 10^3/uL (1.8-7.7); NEUTROPHILS % 93.9 % (36.0-66.0); PLATELET COUNT, AUTOMATED 305 10^3/uL (150-450); RED BLOOD COUNT 3.98 10^6/uL (4.00-5.40); WHITE BLOOD COUNT 23.7 10^3/uL (4.0-10.0)
[2018-07-04 15:00] LABS: LYMPH # 0.2 10^3/uL (1.5-4.5)
== END ==
LOC: M LAB 13:59 → M SHH 13:59
PROVIDERS: ATTEND Physician Assistant Medical
DX: J44.1 Chronic obstructive pulmonary disease with (acute) exacerbation (principal)

== ENCOUNTER → 2018-07-15 | Outpatient (CLI) | payer OTHER ==
--- NOTE | 2018-07-16 11:29 | RADONC ---
RADIATION ONCOLOGY FOLLOWUP NOTE DATE: 07/15/2018 CHART #: [id number] DIAGNOSIS: Vaginal cancer. STAGE: III, T3N0MX. ECOG PERFORMANCE STATUS: 1. FOLLOWUP NOTE: Ms. 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 Since the patient's last visit, she reports that she has had multiple bouts of pneumonia. On 07/04/2018, the patient underwent an angio CT scan after presenting in the emergency room with shortness of breath and chest pain. The CT scan revealed a 2.2 cm right upper lobe mass with mediastinal and right hilar lymphadenopathy most consistent with a neoplastic process. There was also noted to be COPD and emphysematous disease with scattered scarring and mild bronchiectasis. The patient has been scheduled to see Dr. Galindo for tomorrow for discussion and biopsy of her lung issue. She is scheduled to see her medical oncologist in the next couple of weeks, Dr. Patel. REVIEW OF SYSTEMS: The patient's review of systems is positive for a cough and some shortness of breath and is otherwise noncontributory. Denies nausea, vomiting, fevers, chills, night sweats, diplopia, headaches, anxiety or depression, anorexia, weight loss, visual disturbances, chest pain, urinary or bowel difficulties, bone pain, or neurological problems. PHYSICAL EXAMINATION: The patient is a chronically ill-appearing white female in no acute distress. HEENT: Exam is normocephalic, atraumatic. Extraocular movements are intact. There is no palpable cervical, supraclavicular, infraclavicular, axillary or inguinal lymphadenopathy present. Her lungs have some occasional wheezing and rhonchi present. Her heart has a regular rate and rhythm. METROLOGY ENGINEER examination was deferred as was the remainder of the physical examination. ASSESSMENT: Ms. Salinas is presenting now with new masses in the lung in mediastinal as well as hilar areas. I have ordered a PET scan to be undertaken for further evaluation. In addition, I have placed her on the discussion list for our multidisciplinary tumor conference in 2 weeks. She is also scheduled to be seeing Dr. Galindo for discussion, consultation and subsequent biopsy of her lung masses. Following that, she will be followed by her medical oncologist, Dr. Patel, to discuss further treatment. I have set her up to see me again in followup following all of the above to further discuss her overall treatment plan. At this point, however, the goal of all this treatment would be palliative in nature since she was unable to receive a curative procedure for her METROLOGY ENGINEER malignancy. cc: MD Maria Teresa Green MD, FACP MD Naheed Tom PA
== END ==
LOC: M ONCR 12:43
PROVIDERS: ATTEND Radiology Radiation Oncology
DX: C52 Malignant neoplasm of vagina (principal)

== ENCOUNTER → 2018-08-06 | Outpatient (CLI) | payer OTHER ==
[~2018-08-06] MED LIST changes: +CIPR-249 PO; +FLAG250T PO; +HYDR2TAB2 PO; +SENO8.6T5 PO; +SPIR1CAP INH
--- NOTE | 2018-08-06 16:08 | REP ---
Chest x-ray: Two views. 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 Comparison chest x-ray is from July 04, 2018. Comparison CT study July 22, 2018. Findings: There is a 3.8 cm soft tissue mass in the right upper lobe. There is fullness in the azygos node region of the right mediastinum consistent with adenopathy. There is a granulomatous calcification in the left mid lung field. The lung castillo are otherwise clear. Pleural angles are sharp. Heart size is normal. Patient is status post ventral discectomy and fusion plating. Impression: 3.8 cm right upper lobe mass with right mediastinal adenopathy. This corresponds to the CT findings. Electronically Signed by Juan De Jesus MD 08/06/2018 05:26 P
== END ==
LOC: M SMT 14:34
PROVIDERS: ATTEND Physician Assistant Medical
DX: C34.91 Malignant neoplasm of unspecified part of right bronchus or lung (principal)

== ENCOUNTER → 2018-08-06 | Outpatient (REF) | payer OTHER ==
[2018-08-06 16:09] LABS: HEMATOCRIT 29.3 % (36.0-47.0); HEMOGLOBIN 9.1 g/dl (12.0-15.5); MEAN CORPUSCULAR HEMOGLOBIN 29.4 pg (27.0-33.0); MEAN CORPUSCULAR HGB CONC 31.1 g/dl (32.0-36.5); MEAN CORPUSCULAR VOLUME 94.5 fl (80.0-96.0); PLATELET COUNT, AUTOMATED 168 10^3/uL (150-450)
[2018-08-06 16:34] LABS: ALBUMIN 2.5 GM/DL (3.2-5.2); ALT/SGPT 22 U/L (12-78); BILIRUBIN,TOTAL 0.2 MG/DL (0.2-1.0); BLOOD UREA NITROGEN 8 MG/DL (7-18); CALCIUM LEVEL 8.6 MG/DL (8.5-10.1); CARBON DIOXIDE LEVEL 27 MEQ/L (21-32); CHLORIDE LEVEL 96 MEQ/L (98-107); CREATININE FOR GFR 0.49 MG/DL (0.55-1.30); GLOMERULAR FILTRATION RATE > 60.0 (>51); GLUCOSE, FASTING 127 MG/DL (70-100); POTASSIUM SERUM 3.5 MEQ/L (3.5-5.1); SODIUM LEVEL 135 MEQ/L (136-145); TOTAL PROTEIN 6.3 GM/DL (6.4-8.2)
[2018-08-06 16:39] LABS: WHITE BLOOD COUNT 43.7 10^3/uL (4.0-10.0)
[2018-08-06 17:12] LABS: ANISOCYTOSIS 1+; LYMPHOCYTES 1 % (16-52); MONOCYTES 2 % (0-8); NEUTROPHILS 91 % (35-75); PLATELET ESTIMATE NORMAL (NORMAL); POLYCHROMASIA 1+
== END ==
LOC: M SFHCPLAZ 14:11
PROVIDERS: ATTEND Physician Assistant Medical
DX: C34.91 Malignant neoplasm of unspecified part of right bronchus or lung (principal)